=== PATIENT | male | born 1955 | race Caucasian/White ===

== ENCOUNTER 2017-04-26 08:30 | Emergency (ER) | payer MEDICARE ==
[~2017-04-26] VITALS: Ht 177.8 cm; Wt 95.3 kg
[~2017-04-26 08:30] MED LIST: ALPRAZOLAM2 MG PO; AMLODIPINE5 M1 PO; BACTRIM DS 8001 TA1 PO; BACTRIM DS 8001 TAB PO; CIPROFLOXACIN500 MG OR; CYMBALTA60 MG PO; DIAZEPAM10 MG PO; FLAGYL500 MG PO; GABAPENTIN300 M1 PO; GABAPENTIN300 MG PO; LEVOTHYROXIN0.075 M1 PO; LEVOTHYROXINE PO; LEVOTHYROXINE0.05 MG PO; LISINOPRIL 20MG20 MG PO; LISINOPRIL/HCTZ1 TA3 FT; LISINOPRIL10 MG PO; LORTAB 5/500 501 TAB PO; LORTAB 500 MG-71 TAB PO; MEDROL 4MG. DOSE4 MG PO; MORPHINE SULFAT30 M3 PO; MORPHINE SULFAT60 MG PO; NOMEDS *; OXYCODONE HCL30 MG PO; OXYCODONE HYDRO30 MG PO; OXYCONTIN 10MG10 MG PO; PHENERGAN 25MG.25 M1 PO; PROMETHAZINE HC25 M1 PO; SYNTHROID 0.00.05 MG PO; ULTRAM 50 MG TA50 MG PO; VICODIN 5/500 T1 TAB PO; ZITHROMAX Z PA250 MG PO
--- NOTE | 2017-04-26 08:50 | Emergency Room Report ---
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 N Clinical Suspician of Infection? N Mental Status: 1 - Regular (Normal Baseline) Sepsis Risk:Low Sepsis Risk Have you (or family members/close friends) recently traveled outside the [facility]? N If Yes, where/when: Have you had exposure to infectious disease within the past month? N TB? Other? Specify: Patient states yesterday he was feeling his normal self with no complaints. His friend in the room states that his face was a little bit red yesterday, had no swelling. Patient's chief complaint this morning is facial swelling and denies itching he denies any tongue swelling, did have lip swelling. Denies any trouble swallowing or shortness of breath. Denies any pain. Denies any nausea vomiting diarrhea fever chills or cough. His friend relates that he ate some bad chili 2 days ago had some nausea and vomiting after that, as well as some heartburn and took Pepto-Bismol and no symptoms on away. He has not had any further heartburn or nausea or vomiting since days ago. He has a history of kidney problems and he states yesterday he took a new kidney medicine for the first time he does not know the name of it. Denies any itching denies any rash or swelling elsewhere on his body. his friend states he slept outside last night in a chair, which is unusual for him, but otherwise was his normal self yesterday. today the patient complains of feeling tired. His friend states he is concerned that sometimes he takes too many medicines/takes them improperly, as well as was just recently started on a new medicine yesterday, of unknown type. ALLERGIES Coded Allergies: Penicillins (05/17/16) Home Medications Reported Medications Alprazolam 2 MG PO TID OXYCODONE HCL (Oxycodone Hcl) 30 MG PO Q6HP PRN PAIN #120 TAB Gabapentin 300 MG PO BID #60 MORPHINE SULFATE SR/ER (Morphine Sulfate ER) 30 MG PO Q12 Levothyroxine Sodium (Synthroid 0.05MG) 0.05 MG PO DAILY History Medical History General CAD? No Angina: No [place]: No Hypertension? Yes Hyperlipidemia? No CHF? No DVT? No PE? No COPD? No Asthma? No Anemia? No GERD? No Gastric ulcers? No GI Bleed? No Hernia? No Thyroid Problems? Yes Hypothyroidism? Yes CVA? No Seizures? Yes Diabetes? No Renal Insuffiency? Yes End Stage Renal Disease? No UTI? Yes Stones? Yes BPH? No GB Disease: No Nephritic Syndrome? No Asplenia? No Hepatitis? No Sickle Cell Disease? No Arthritis? Yes Migraines? No Cataracts? No Glaucoma? No MRSA? No HIV? No TB? No Anxiety? Yes Depression? No Cancer? 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 X9 RIGHT SHOULDER KIDNEY SURGERY TUMOR REMOVED FROM LUNG Family History Family Hx Diabetes No CAD No Hypertension Yes Hyperlipidemia Yes Cancer Yes TB No Social History Smoking Hx Smoker: Current Every Day Smoker Tobacco: Yes Type Cigarettes Packs/day < 1 Pack Alcohol Alcohol: No Review of Systems All Other Systems Reviewed and Negative Physical Exam Vital Signs Vital Signs Date Time Temp Pulse Resp B/P Pulse O2 O2 Flow FiO2 Ox Delivery Rate 04/26 1350 68 16 136/76 100 2 04/26 1312 80 16 136/76 98 2 04/26 1232 70 16 181/90 98 04/26 1154 75 16 180/80 98 04/26 1059 65 16 100/60 98 04/26 0939 75 16 110/65 98 04/26 0836 98.1 80 16 109/68 97 General Appearance: Nontoxic, has bilateral periorbital edema Head: Normocephalic, without obvious abnormality, atraumatic. Recent bilateral periorbital edema and some facial swelling minimal facial redness, his friend states it was more red yesterday. His lips look like they have some edema. he does has an area on his forehead with some redness left side. Eyes: conjunctiva/corneas clear ENT: Mucous membranes moist. I don't note any tongue edema or oropharyngeal edema Neck: No jugular venous distention. Cardiac: regular rate and rhythm Lungs: Clear to auscultation bilaterally Abdomen: Nontender, Nondistended, positive bowel sounds, no rebound : No CVA tenderness Extremities: Trace bilateral lower extremity edema Musculoskeletal: No chest wall tenderness Skin: No rashes or lesions to exposed skin. Neurologic: Alert. No gross focal deficits. pt tired but arouses to voice easily. A+0x3. moves all fours. cn intact to somewhat limited exam/compliance. Psychiatric: flat/drowsy affect (Ashish CEBALLOS, Moshe) General Appearance normal appearance Respiratory Status No: respiratory distress. Cardiovascular normal exam Neurologic alert Medical Decision Making LABS/Meds/Orders Pt receiving controlled substance in ED? No Comment 908 RN states new medicine was xanax, rn states pt appears sedated. friend had expressed concern with taking medicine properly. possible sedation from medicines. 912 Dr Leslie saw patient in ER, thinks patient can likely go home. 940 circa, cardiopulmonary technologist relates pt sleepy no lisinopril in med list. 1054 pt drowsy, states year is 1976, 1977, knows name, knows is in er, but very drowsy, awakes to voice, needs some phsyical stimulation to answer questions. will try narcan, get ct head. friend was concerned with patient taking too much medicine perhaps, as well as recent new xanax. pt denies pain. no focal deficits. staff state patient has done this before, with medications as the cause. 1124 patient less arousable, 0.4 narcan given, ct head pending, abg, ammonia added on, at this point, ct head reading pending, pt with possible alteration of mental status which began last night with him sleeping outside. likely medicine effect, not tpa candidate due to time as well as no focal deficits noted to somewhat limited exam. 1200 no effect with additional narcan. awaiting CT head read. VSSS. 1203 dw medical records field technician desire STAT reading of CT head. abg being obtained now. 1211 pt current EMV is 2/5/2 opens eyes to pain, localizes, grunts +gag reflex. has had 500 NS in so far, dw RN to finish off the second 500NS, to finish off a liter bolus. 1212 CXR brings up possibility of pneumonia. will cover. ct head nad. abg no c02 retention. ammonia pending. will admit, working diagnosis is drug overdose. 1240 ammonia normal, still with positive gag reflex. emv . call out to Mariama CEBALLOS 122 dw Mariama desires transfer to for nuerology eval. then repeat exam. wakes and tells me his name with sternal rub, denies pain. call out to ER 129pm ravin is on diversion, also on repeat exam, the skin of the left forehead looks more consistent with a pressure type wound. 159pm aaliyah Cunningham MD he accepts in transfer. transfer aaliyah RN at present. Results/Orders Laboratory Tests 04/26/17 1215: ABG pH 7.38, ABG pCO2 (Temp Corrct 40.4, ABG pO2 (Temp Correct 72.8 L, ABG HCO3 23.5, ABG Total CO2 24.8, ABG O2 Sat (Calculated) 95.0, ABG Base Excess -1.6, Dario Test ACCEPTABLE, Blood Gas Comments L RADIAL 04/26/17 1202: Urine Color YELLOW, Urine Appearance Clear, Urine pH 6.0, Ur Specific [place] 1.020, Urine Protein NEGATIVE, Urine Ketones NEGATIVE, Urine Blood NEGATIVE, Urine Nitrate NEGATIVE, Urine Bilirubin NEGATIVE, Urine Urobilinogen 0.2, Ur Leukocyte Esterase NEGATIVE, Urine RBC NONE, Urine WBC 3-5, Ur Squamous Epith Cells NONE, Urine Bacteria 3+, Urine Glucose NEGATIVE 04/26/17 1155: Ammonia 15 L 04/26/17 0900: CK and CKMB Interp 4.7 H 04/26/17 0900: Sodium 136, Potassium 5.0, Chloride 101, Carbon Dioxide 29, BUN 28 H, Creatinine 2.2 H, Estimated Creat Clear 48 L, Estimated GFR (MDRD) 31, Glucose 131 H, Calcium 9.5, Total Bilirubin 0.4, AST 17, ALT 22, Alkaline Phosphatase 72, Troponin I < 0.02, Total Protein 7.3, Albumin 3.9, Globulin 3.4 H, Albumin/ Globulin Ratio 1.1, WBC 4.8, RBC 4.30 L, Hgb 13.5 L, Hct 42.3, MCV 98.2 H, RDW 13.1, Plt Count 183, Gran % 74.9, Gran # 3.6, Lymphocytes % 17.2, Monocytes % 5.7, Eosinophils % 1.7, Basophils % 0.5, Lymphocytes # 0.8, Monocytes # 0.3, Eosinophils # 0.1, Basophils # 0.0, PUBS MCHC 32.0, MCH 31.4 H, Salicylates 5.4 , Acetaminophen 0 L, Alcohols 0 Current Medication Orders Sig/Vinh Start time Last Medication Dose Route Stop Time Status Admin Clindamycin Phosphate 600 MG ONCE ONE 04/26 1330 AC Sodium Chloride 100 ML IV 04/26 1431 Levofloxacin/Dextrose 150 ML ONCE ONE 04/26 1230 r 04/26 IV 04/26 1359 1230 Levofloxacin/Dextrose 150 ML .STK-MED ONE 04/26 1228 DC IV Sodium Chloride 1,000 ML .Q1H1M 04/26 1215 DC 04/26 IV 04/26 1315 1216 Sodium Chloride 10 ML PRN PRN 04/26 1215 AC IV 04/27 1212 Naloxone HCl 2 MG ONCE ONE 04/26 1130 DC 04/26 IV 04/26 1131 1153 Naloxone HCl 0 .STK-MED ONE 04/26 1113 DC .ROUTE Naloxone HCl 0.4 MG ONCE ONE 04/26 1100 DC 04/26 IV 04/26 1101 1114 Famotidine 0 .STK-MED ONE 04/26 921 DC IV Acetaminophen 0 .STK-MED ONE 04/26 920 DC PO Diphenhydramine HCl 0 .STK-MED ONE 04/26 920 DC .ROUTE Methylprednisolone 0 .STK-MED ONE 04/26 920 DC Sodium Succinate .ROUTE Diphenhydramine HCl 12.5 MG ONCE ONE 04/26 915 DC 04/26 IV 04/26 916 0937 Famotidine 20 MG ONCE ONE 04/26 915 DC 04/26 IV 04/26 916 0937 Sodium Chloride 8 ML ONCE ONE 04/26 915 DC 04/26 IV 04/26 916 1114 Acetaminophen 500 MG ONCE ONE 04/26 900 DC 04/26 PO 04/2637 Diphenhydramine HCl 25 MG ONCE ONE 04/26 900 CAN IV 04/26 901 Famotidine 20 MG 04/26 900 CAN IV Methylprednisolone 125 MG ONCE ONE 04/26 900 DC 04/26 Sodium Succinate IV 04/26 901 0936 Sodium Chloride 10 ML PRN PRN 10/04 0900 AC IV 04/27 0851 Orders Procedure Date/time Status DIET-NOTHING BY MOUTH 04/26 L Active DRUG ABUSE SCREEN (TRIAGE) 04/26 1234 Active SALICYLATE 04/26 1232 Complete ALCOHOL 04/26 1232 Complete Acetaminophen 04/26 1232 Complete CULTURE, BLOOD 04/26 1217 Active URINARY CATHETER INSERT 04/26 1204 Active CULTURE, URINE 04/26 1202 Active FSBS REQUEST BY CARE AREA 04/26 1126 Active ARTERIAL BLOOD GAS REQUEST 04/26 1124 Active AMMONIA 04/[address] HEAD REQ 04/26 1053 Complete SENIOR HOUSEKEEPER 04/26 0957 Active URINALYSIS/COMPLETE 04/26 0937 Complete CKMB 04/26 0904 Complete ELECTROCARDIOGRAM REQUEST 04/26 0853 Active NECK SOFT TISSUE 04/26 0853 Active IV SALINE LOCK 04/26 0853 Active GEN NSG/PT REQ (NOT FOR MEDS!) 04/26 0853 Active TROPONIN I 04/26 0853 Complete CBC WITH AUTO DIFF 04/26 0853 Complete CHEM 12 PROFILE 04/26 0853 Complete 12 LEAD EKG-BESSON (INITIAL) 04/26 UNK Active CM/EKG CM/ribbon tier Rhythm Normal Sinus Rhythm Rate 81 Ectopy No Comments LEFT axis deviation unremarkable electrocardiogram Departure Departure Time of Disposition 1223 Disposition Still a Patient Clinical Impression Primary Impression: Altered mental status Qualifiers: Altered mental status type: unspecified Qualified Code: R41.82 - Altered mental status, unspecified Secondary Impressions: Facial swelling Condition STABLE Referrals Mariama CEBALLOS,Roger Altman (PCP/Family) ED Critical Care Critical Care Yes Time spent 30-74 min Vital system(s) involved: Central Nervous System I was present at bedside for Coordinating pt's care, Interpreting EKGs/Strips , During my initial exam, Reviewing lab results, Reviewing old records, Discussing pt condition, For re-examinations, Examining radiographs If Critical Care minutes are documented, the time involved in the performance of seperately reportable procedures was not counted toward critical care time documented. I directly delivered medical care to this critically ill and/or injured patient. Timely evaluation and treatment was necessary to address the significant organ system(s) dysfunction present in this patient. at 1400
[2017-04-26 09:16] LABS: LYMPH # 0.8 K/mm3 (0.7-4.5); LYMPH % 17.2 % (10-50)
[2017-04-26 09:21] LABS: HEMOGLOBIN 13.5 g/dL (14.1-18.0)
[2017-04-26 09:26] LABS: BUN 28 mg/dL (7-18)
[2017-04-26 09:28] LABS: GFR (ESTIMATED) 31 ML/MIN (>60)
--- NOTE | 2017-04-26 11:37 | RADIOLOGY REPORT PS360 ---
CHEST(2 VIEWS-NOT PORTABLE) COMPARISON: PA and lateral chest 07/06/2012 HISTORY: Facial swelling TECHNIQUE: PA and lateral chest FINDINGS: The lung calabrese are well expanded. There are slightly accentuated bronchovascular markings in the right infrahilar region extending to the right lower lobe. The right upper lung field and left lung field are clear. Cardiac size is normal. Is no pleural fluid. The bony thorax appears normal for age with minor degenerative change lower thoracic spine. IMPRESSION: Questionable right lower lobe bronchopneumonia versus confluence of vascular shadows and suggest clinical correlation.
--- NOTE | 2017-04-26 12:12 | RADIOLOGY REPORT PS360 ---
CT HEAD WITHOUT CONTRAST CT BONE WINDOWS included ORDERING PHYSICIAN : Moshe Hinojosa MD PATIENT AGE: 62 years GENDER: Male PROCEDURE: Routine axial images headwithout contrast. Brain & bone windows HISTORY: AMS mental status changes. Not speaking. Patient uncooperative COMPARISON: CT head without contrast 12/24/2016. 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 This is seen best on axial slice 13 and 12.-No significant change here since December, No intracranial findings. No hemorrhage. No mass effect or mass lesion. No subdural nor extra-axial collection. Ventricles & basal cisterns appear satisfactory. The posterior fossa appear satisfactory and unremarkable. The skull is intact. Over 2 cm Mucous Retention cyst at floor right maxillary sinuses is slight smaller than was in 2013. Ethmoid sinuses, sphenoid and frontal sinuses clear.Mastoid air cells, middle ear & IACs are unremarkable. IMPRESSION: No acute intracranial findings. 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 No change here since December 2012
[2017-04-26 12:14] LABS: URINE BILIRUBIN - DIPSTICK NEGATIVE (NEG); URINE BLOOD NEGATIVE (NEG)
[2017-04-26 12:15] LABS: ARTERIAL ABE -1.6 MMOL/L (-2.4-+2.3); ARTERIAL PO2 72.8 MMHG (80-100); ARTERIAL TCO2 24.8 MMOL/L (23-27); OXYGEN ROOM AIR
[2017-04-26 12:16] LABS: ALLEN'S TEST ACCEPTABLE
--- NOTE | 2017-04-26 14:44 | RADIOLOGY REPORT PS360 ---
NECK SOFT TISSUE COMPARISON: None HISTORY: Facial swelling TECHNIQUE: Lateral soft tissue views of the neck FINDINGS: C1-C6 are visualized and appear in normal alignment with normal disc spaces. There appears be diffuse thickening of the epiglottis with borderline thickening of the prevertebral soft tissues. IMPRESSION: Mild diffuse thickening of the epiglottis, is there clinical suspicion of epiglottitis? Suggest consideration of a follow-up CT scan the neck for better evaluation.
[2017-04-26 15:25] LABS: AMPHETAMINES/METAMPHETAMINES NEGATIVE ng/mL (<1000)
[2017-04-26 15:37] VITALS: BP 153/78
--- OUTSIDE RECORDS SUMMARY | 2017-05-04 13:32 | External Medical Summary Rpt | CCD ---
Author Author , YASIR COOLEY Address Unknown Phone Care Team Providers Care Summer Analyst Name Role Phone Samina NGUYEN, Unavailable Unavailable Samina NGUYEN ANDREINA CAREN, Unavailable Unavailable ANDREINA CAREN ANDREINA CAREN, Unavailable Unavailable ANDREINA CAREN CONY GRACIELA, CONY Unavailable Unavailable GRACIELA CONY GRACIELA, CONY Unavailable Unavailable [facility] Un[facility] Un[facility], [facility], [facility] Purpose Continuity of Care Document - 09-20-2012 through 2016 Problems Code Diagnosis DOS Provider Status 3766 RETAINED FB 11-13-2013 [facility] PENETRATING INC WOUND ORBIT 7231 CERVICALGIA 11-13-2013 [facility] V1083 PERSONAL 11-13-2013 [facility] HISTORY CAREN OTHER MALIGNANT NEOPLASM SKIN V711 OBSERVATION 11-13-2013 ANDREINA FOR CAREN SUSPECTED MALIGNANT NEOPLASM V8289 SPECIAL 11-13-2013 ANDREINA SCREENING CAREN FOR OTHER SPECIFIED CONDITIONS 3543 LESION OF 10-28-2013 [facility]IAL [facility] NERVE INC 4019 UNSPECIFIED 10-28-2013 [facility]ENTIAL [facility] HYPERTENSIO INC N 4619 ACUTE 10-28-2013 [facility]IS[facility] UNSPECIFIED INC 72693 DIVERTICULI 10-28-2013 [facility] TIS OF [facility] COLON INC 77701 OTHER 10-28-2013 [facility] 7820 DISTURBANCE 10-28-2013 CONY GRACIELA OF SKIN SENSATION [phone] 09-20-2012 [place] OPIOID [facility] C [phone] 09-20-2012 [place] OTHER [facility] [phone] 09-20-2012 [place] CHEST PAIN [facility] 244.9 Hypothyroid [facility] 401.1 Benign [facility] n [id number] Active [facility] [id number] Chronic [facility] Allergies, Adverse Reactions, Alerts Type Drug Allergy Adverse Reaction to Substance Substance Reaction Severity Penicillin I-RASH Unknown Penicillin G Unknown Unknown Medications Na ND Rx Da Fi Fi Am Da Di Ph RX Ph St me C No te ll ll ou ys ag ar # ys at rm s nt no ma ic us Or Da si cy ia de te s n re d NI 00 06 0 No CO 06 -2 TI 75 6- Lo NE 12 20 ng 61 13 er 21 4 Ac MG ti /2 ve 4H R PA TC H SY 00 06 0 No NT 07 -2 HR 44 6- Lo OI 34 20 ng D 19 13 er 25 0 Ac MC ti G ve TA BL ET SO 00 06 0 No DI 40 -2 UM 97 6- Lo 98 20 ng CH 30 13 er LO 9 RI Ac DE ti ve 0. 9% SO GILBERTO TI ON Sa 63 06 1 No li 80 -2 ne 70 5- Lo 10 20 ng Fl 07 13 er us 5 h Ac 10 ti ML ve Sy ri ng e AC 00 06 0 No TI 57 -2 DO 40 5- Lo SE 12 20 ng 07 13 er 50 6 Ac GM ti ve LI QU ID Na 76 06 0 No lo 32 -2 xo 91 5- Lo ne 46 20 ng 90 13 er 2M 5 G/ Ac 2M ti L ve Sy ri ng e Sa 63 06 1 No li 80 -2 ne 70 5- Lo 10 20 ng Fl 07 13 er us 5 h Ac 10 ti ML ve Sy ri ng e Na 76 06 0 No lo 32 -2 xo 91 5- Lo ne 46 20 ng 90 13 er 2M 5 G/ Ac 2M ti L ve Sy ri ng e Sa 63 06 1 No li 80 -2 ne 70 5- Lo 10 20 ng Fl 07 13 er us 5 h Ac 10 ti ML ve Sy ri ng e Na 76 06 0 No lo 32 -2 xo 91 5- Lo ne 46 20 ng 90 13 er 2M 5 G/ Ac 2M ti L ve Sy ri ng e Sa 63 06 1 No li 80 -2 ne 70 5- Lo 10 20 ng Fl 07 13 er us 5 h Ac 10 ti ML ve Sy ri ng e Na 76 06 0 No lo 32 -2 xo 91 5- Lo ne 46 20 ng 90 13 er 2M 5 G/ Ac 2M ti L ve Sy ri ng e As 51 02 0 No pi 07 -2 ri 90 8- Lo n 00 20 ng 32 52 13 er 5M 0 G Ac Ta ti bl ve et NI 59 02 0 No TR 63 -2 OG 00 8- Lo LY 30 20 ng CE 06 13 er RI 5 N Ac 0. ti 4M ve G/ DO SE SP RA Y Vital Signs 05-09-2013 02:12 Name Value Interpretat Reference Comment ion Range BP 70 mm[Hg] Diastolic BP Systolic 120 mm[Hg] Heart 78 /min Rate/Pulse O2% 97 % Respiratory 16 /min Rate 04-08-2013 19:03 Name Value Interpretat Reference Comment ion Range Body 97.9 [degF] Temperature BP 75 mm[Hg] Diastolic BP Systolic 122 mm[Hg] Heart 80 /min Rate/Pulse O2% 98 % Respiratory 18 /min Rate 04-08-2013 19:02 Name Value Interpretat Reference Comment ion Range Body 97.9 [degF] Temperature BP 75 mm[Hg] Diastolic BP Systolic 122 mm[Hg] Heart 80 /min Rate/Pulse O2% 98 % Respiratory 18 /min Rate 02-15-2013 23:20 Name Value Interpretat Reference Comment ion Range BP 81 mm[Hg] Diastolic BP Systolic 131 mm[Hg] Heart 65 /min Rate/Pulse O2% 99 % Respiratory 20 /min Rate 01-16-2013 13:55 Name Value Interpretat Reference Comment ion Range Body 98.0 [degF] Temperature BP 80 mm[Hg] Diastolic BP Systolic 112 mm[Hg] Heart 65 /min Rate/Pulse Respiratory 18 /min Rate 01-16-2013 12:00 Name Value Interpretat Reference Comment ion Range O2% 100 % 01-16-2013 00:30 Name Value Interpretat Reference Comment ion Range Height 177.80 cm Weight 85.333 kg Measured 01-15-2013 22:14 Name Value Interpretat Reference Comment ion Range Body 98.0 [degF] Temperature BP 57 mm[Hg] Diastolic BP Systolic 151 mm[Hg] Heart 60 /min Rate/Pulse O2% 96 % Respiratory 16 /min Rate Weight 0 [oz_av] Measured 09-20-2012 19:01 Name Value Interpretat Reference Comment ion Range BP 63 mm[Hg] Diastolic BP Systolic 128 mm[Hg] Heart 57 /min Rate/Pulse O2% 96 % Respiratory 20 /min Rate 09-20-2012 14:59 Name Value Interpretat Reference Comment ion Range Body 98.7 [degF] Temperature BP 78 mm[Hg] Diastolic BP Systolic 161 mm[Hg] Heart 78 /min Rate/Pulse O2% 98 % Respiratory 20 /min Rate Weight 0 [oz_av] Measured Weight 89.812 kg Measured Results Labs Lab Lab Date Result Refere Interp Status Commen Order Detail nces retati t Range on Gas panel in Arterial blood (04-26-2017 12:15) Arteria ACCEPTA complet l 017 BLE ed patency 12:15 Wrist artery --pre arteria l punctur e SOURCE L complet 017 RADIAL ed 12:15 Drugs identified in Urine by Screen method (04-26-2017 12:02) Ampheta NEGATIV <1000 complet mine 017 E ed [Presen 12:02 ce] in Urine by Screen method 11-Hydr POSITIV <50 Abnorma complet oxy 017 E l ed delta-9 12:02 tetrahy drocann abinol [Presen ce] in Unspeci fied specime n Urinalysis dipstick W Reflex Microscopic panel in Urine (04-26-2017 12:02) Bacteri 3+ O complet a 017 ed [Presen 12:02 ce] in Urine sedimen t by Light microsc opy Erythro NONE 0 complet cytes 017 ed [Presen 12:02 ce] in Urine sedimen t by Light microsc opy Epithel NONE OCC complet ial 017 ed cells.s 12:02 quamous [Presen ce] in Urine sedimen t by Microsc opy high power field Leukocy 3-5 O complet rigo 017 wbc/hpf ed [#/volu 12:02 me] in Urine Urinalysis dipstick W Reflex Microscopic panel in Urine (04-26-2017 12:02) Appeara Clear CLEAR complet nce of 017 ed Urine 12:02 Bilirub NEGATIV NEG complet in 017 E ed [Presen 12:02 ce] in Urine by Test strip Erythro NEGATIV NEG complet cytes 017 E ed [Presen 12:02 ce] in Urine Color YELLOW YELLOW complet of 017 ed Urine 12:02 Ketones NEGATIV NEG complet 017 E ed [Presen 12:02 ce] in Urine by Automat ed test strip Mucus NEGATIV NEG complet [Presen 017 E ed ce] in 12:02 Urine sedimen t by Light microsc opy Nitrite NEGATIV NEG complet 017 E ed [Presen 12:02 ce] in Urine by Test strip Urobili 0.2 NEG complet nogen 017 ed [Presen 12:02 ce] in Urine by Test strip Ca-I SerPl ISE-sCnc (01-24-2017 06:14) Ca-I 5.0 4.6-5.1 complet SerPl 017 mg/dL ed ISE-sCn 06:14 c Magnesium SerPl-mCnc (01-24-2017 06:14) Magnesi 2.1 1.9-2.4 complet um 017 mg/dL ed SerPl-m 06:14 Cnc Ca-I SerPl ISE-sCnc (01-23-2017 02:29) Ca-I 4.5 4.6-5.1 complet SerPl 017 mg/dL ed ISE-sCn 02:29 c Magnesium SerPl-mCnc (01-23-2017 02:29) Magnesi 2.0 1.9-2.4 complet um 017 mg/dL ed SerPl-m 02:29 Cnc Phosphate SerPl-mCnc (01-22-2017 02:27) Phospha 3.7 2.5-4.5 complet te 017 mg/dL ed SerPl-m 02:27 Cnc Magnesium SerPl-mCnc (01-22-2017 02:27) Magnesi 2.1 1.9-2.4 complet um 017 mg/dL ed SerPl-m 02:27 Cnc Ca-I SerPl ISE-sCnc (01-22-2017 02:27) Ca-I 4.4 4.6-5.1 complet SerPl 017 mg/dL ed ISE-sCn 02:27 c MDRO Wnd (01-21-2017 16:12) Bacteri [id number] complet a XXX 017 06 No ed Anaerob 16:12 growth e+Aerob (qualif e Cult ier value) SCT NG1 NO GROWTH DAY 1. L CC XXX NOTAP complet VC-aCnc 017 NOT ed 16:12 APPLICA BLE L Magnesium SerPl-mCnc (01-21-2017 12:30) Magnesi 2.2 1.9-2.4 complet um 017 mg/dL ed SerPl-m 12:30 Cnc Sodium Ur-sCnc (01-21-2017 12:30) Sodium 88 complet Ur-sCnc 017 mmol/L ed 12:30 Creat Ur-mCnc (01-21-2017 12:30) Creat 22 complet Ur-mCnc 017 mg/dL ed 12:30 Ca-I SerPl ISE-sCnc (01-21-2017 12:30) Ca-I 4.1 4.6-5.1 complet SerPl 017 mg/dL ed ISE-sCn 12:30 c NT-proBNP SerPl-mCnc (01-21-2017 12:30) NT-proB 143 0-899 complet HOSE TENDER 017 pg/mL ed SerPl-m 12:30 Cnc T4 Free SerPl-mCnc (01-21-2017 12:30) T4 Free 1.2 0.8-1.7 complet 017 ng/dL ed SerPl-m 12:30 Cnc Salicylates SerPl-sCnc (01-21-2017 12:30) Salicyl < 0.3 0-25.0 complet ates 017 mg/dL ed SerPl-s 12:30 Cnc Acetamin SerPl-mCnc (01-21-2017 12:30) Acetami < 15.0 10-30 complet n 017 ug/mL ed SerPl-m 12:30 Cnc CK SerPl-cCnc (01-21-2017 12:30) CK 543 U/L 49-320 complet SerPl-c 017 ed Cnc 12:30 Bacteria XXX Anaerobe+Aerobe Cult (01-21-2017 11:16) Bacteri [id number] complet a XXX 017 06 No ed Anaerob 11:16 growth e+Aerob (qualif e Cult ier value) SCT NGB6 NO GROWTH DAY 5. L TSH SerPl DL<=0.005 mIU/L-aCnc (01-21-2017 08:43) TSH 6.98 0.4-4.2 complet SerPl 017 uIU/mL ed DL<=0.0 08:43 05 mIU/L-a Cnc Phosphate SerPl-mCnc (01-21-2017 08:43) Phospha 8.4 2.5-4.5 complet te 017 mg/dL ed SerPl-m 08:43 Cnc Magnesium SerPl-mCnc (01-21-2017 08:43) Magnesi 2.5 1.9-2.4 complet um 017 mg/dL ed SerPl-m 08:43 Cnc Lipase SerPl-cCnc (01-21-2017 08:43) Lipase 40 U/L 19-63 complet SerPl-c 017 ed Cnc 08:43 Lactate Bld-sCnc (01-21-2017 08:43) Lactate 1.6 complet 017 mmol/L ed Bld-sCn 08:43 c Drugs identified in Urine by Screen method (12-28-2016 16:00) Ampheta NEGATIV <1000 complet mine 017 E ed [Presen 16:00 ce] in Urine by Screen method 11-Hydr POSITIV <50 Abnorma complet oxy 017 E l ed delta-9 16:00 tetrahy drocann abinol [Presen ce] in Unspeci fied specime n Urinalysis dipstick W Reflex Microscopic panel in Urine (12-25-2016 13:10) Appeara CLEAR CLEAR complet nce of 017 ed Urine 13:10 Bacteri TRACE O complet a 017 ed [Presen 13:10 ce] in Urine sedimen t by Light microsc opy Bilirub NEGATIV NEG complet in 017 E ed [Presen 13:10 ce] in Urine by Test strip Erythro NEGATIV NEG complet cytes 017 E ed [Presen 13:10 ce] in Urine Color 06-04-2 YELLOW YELLOW complet of 017 ed Urine 13:10 Ketones 12-25-2 NEGATIV NEG complet 017 E ed [Presen 13:10 ce] in Urine by Automat ed test strip Mucus 12-25-2 NEGATIV NEG complet [Presen 017 E ed ce] in 13:10 Urine sedimen t by Light microsc opy Mucus -04-2 OCC NONE complet [Presen 017 ed ce] in 13:10 Urine sedimen t by Light microsc opy Nitrite --2 NEGATIV NEG complet 017 E ed [Presen 13:10 ce] in Urine by Test strip Epithel -04-2 OCC OCC complet ial 017 ed cells.s 13:10 quamous [Presen ce] in Urine sedimen t by Microsc opy high power field Urobili 12-25-2 0.2 NEG complet nogen 017 ed [Presen 13:10 ce] in Urine by Test strip Drugs identified in Urine by Screen method (12-25-2016 13:10) Ampheta 12-25-2 NEGATIV <1000 complet mine 017 E ed [Presen 13:10 ce] in Urine by Screen method 11-Hydr 12-25-2 NEGATIV <50 complet oxy 017 E ed delta-9 13:10 tetrahy drocann abinol [Presen ce] in Unspeci fied specime n COMPREHENSIVE METABOLIC PANEL (01-16-2013 09:05) Glucose 105 74-106 complet 013 mg/dL ed Bld-mCn 09:05 c BUN 22 7-18 complet Bld-mCn 013 mg/dL ed c 09:05 Creat 1.0 0.8-1.3 complet SerPl-m 013 mg/dL ed Cnc 09:05 ESTIMAT 101 50-200 complet ED 013 ML/MIN ed CREATIN 09:05 INE CLEARAN CE GFR 78 Greater complet (ESTIMA 013 ML/MIN than ed MARCELLUS) 09:05 60 Sodium 144 136-145 complet SerPl-s 013 mmoL/L ed Cnc 09:05 Potassi 4.6 3.5-5.1 complet um 013 mmoL/L ed SerPl-s 09:05 Cnc Chlorid 06-26-2 107 98-107 complet e 013 mmoL/L ed SerPl-s 09:05 Cnc CO2 01-16-2 36 21.0-32 complet SerPl-s 013 mmoL/L .0 ed Cnc 09:05 Calcium 01-16-2 8.7 8.5-10. complet 013 mg/dL 1 ed SerPl-m 09:05 Cnc Prot 26-2 6.9 6.4-8.2 complet SerPl-m 013 gm/dL ed Cnc 09:05 Albumin 01-16-2 3.7 3.4-5.0 complet 013 gm/dL ed SerPl-m 09:05 Cnc Globuli 01-16-2 3.2 1.3-3.2 complet n 013 gm/dL ed Ser-mCn 09:05 c Albumin 01-16-2 1.2 UNK 1.1-1.8 complet /Glob 013 ed SerPl-m 09:05 Rto Bilirub 01-16-2 0.6 0.2-1.0 complet 013 mg/dL ed SerPl-m 09:05 Cnc AST 26-2 8 U/L 15-37 complet SerPl-c 013 ed Cnc 09:05 ALT -26-2 29 U/L 30-65 complet SerPl-c 013 ed Cnc 09:05 ALP 26-2 90 U/L 50-136 complet SerPl-c 013 ed Cnc 09:05 URINALYSIS/COMPLETE (01-15-2013 23:04) URINE 06-25-2 YELLOW YELLOW complet COLOR 013 ed 23:04 URINE -25-2 CLEAR CLEAR complet APPEARA 013 ed NCE 23:04 URINE 06-25-2 NEGATIV NEG complet GLUCOSE 013 E ed - 23:04 DIPSTIC K URINE 06-25-2 NEGATIV NEG complet BILIRUB 013 E ed IN - 23:04 DIPSTIC K URINE 06-25-2 NEGATIV NEG complet KETONE 013 E mg/dL ed 23:04 URINE 06-25-2 1.020 1.005-1 complet SPECIFI 013 UNK .030 ed C 23:04 GRAVITY URINE 06-25-2 NEGATIV NEG complet BLOOD 013 E ed 23:04 URINE 06-25-2 5.5 UNK 5.0-8.5 complet PH 013 ed 23:04 URINE 06-25-2 NEGATIV NEG complet PROTEIN 013 E mg/dL ed - 23:04 DIPSTIC K URINE 0.2 NEG complet UROBILI 013 E.U./dL ed NOGEN - 23:04 DIPSTIC K URINE NEGATIV NEG complet NITRATE 013 E ed - 23:04 DIPSTIC K URINE NEGATIV NEG complet LEUK 013 E ed ESTERAS 23:04 E URINE OCC O complet WBC 013 wbc/hpf ed 23:04 COMPREHENSIVE METABOLIC PANEL (01-15-2013 22:05) Glucose 106 74-106 complet 013 mg/dL ed Bld-mCn 22:05 c BUN 33 7-18 complet Bld-mCn 013 mg/dL ed c 22:05 Creat 1.3 0.8-1.3 complet SerPl-m 013 mg/dL ed Cnc 22:05 GFR 57 Greater complet (ESTIMA 013 ML/MIN than ed MARCELLUS) 22:05 60 Sodium 142 136-145 complet SerPl-s 013 mmoL/L ed Cnc 22:05 Potassi 4.5 3.5-5.1 complet um 013 mmoL/L ed SerPl-s 22:05 Cnc Chlorid 104 98-107 complet e 013 mmoL/L ed SerPl-s 22:05 Cnc CO2 34 21.0-32 complet SerPl-s 013 mmoL/L .0 ed Cnc 22:05 Calcium 9.2 8.5-10. complet 013 mg/dL 1 ed SerPl-m 22:05 Cnc Prot 7.7 6.4-8.2 complet SerPl-m 013 gm/dL ed Cnc 22:05 Albumin 4.2 3.4-5.0 complet 013 gm/dL ed SerPl-m 22:05 Cnc Globuli 3.5 1.3-3.2 complet n 013 gm/dL ed Ser-mCn 22:05 c Albumin 1.2 UNK 1.1-1.8 complet /Glob 013 ed SerPl-m 22:05 Rto Bilirub 06-25-2 0.5 0.2-1.0 complet 013 mg/dL ed SerPl-m 22:05 Cnc AST 01-15-2 10 U/L 15-37 complet SerPl-c 013 ed Cnc 22:05 ALT 01-15-2 26 U/L 30-65 complet SerPl-c 013 ed Cnc 22:05 ALP 01-15-2 88 U/L 50-136 complet SerPl-c 013 ed Cnc 22:05 Acetamin SerPl-mCnc (01-15-2013 22:05) Acetami 01-15-2 0 ug/mL 10-30 complet n 013 ed SerPl-m 22:05 Cnc Ethanol Bld-mCnc (01-15-2013 22:05) Ethanol 01-15-2 0 mg/dL 0-99 complet 013 ed Bld-mCn 22:05 c Salicylates SerPl-mCnc (01-15-2013 22:05) Salicyl 01-15-2 3.5 2.8-20. complet ates 013 mg/dL 0 ed SerPl-m 22:05 Cnc CBC with AUTO DIFF (01-15-2013 22:05) WBC # 25-2 3.4 4.8-10. complet Bld 013 K/MM3 8 ed Auto 22:05 RBC # 25-2 4.31 4.6-6.2 complet Bld 013 M/mm3 ed Auto 22:05 Hgb 01-15-2 13.6 14.1-18 complet Bld-mCn 013 g/dL .0 ed c 22:05 Hct Fr 01-15-2 40.6 % 42.0-52 complet Bld 013 .0 ed 22:05 MCV RBC 01-15-2 94.3 fl 82.2-97 complet 013 .8 ed 22:05 MCH RBC 01-15-2 31.6 pg 27-31.2 complet Qn 013 ed Auto 22:05 MEAN 01-15-2 33.5 31.8-35 complet CORPUSC 013 g/dl .4 ed ULAR 22:05 HGB CONC RDW RBC 01-15-2 13.6 % 11.5-17 complet Auto 013 .5 ed 22:05 Platele 01-15-2 172 142-424 complet t Bld 013 K/mm3 ed Ql 22:05 Manual MEAN 06-25-2 7.5 fl 7.4-10. complet PLATELE 013 4 ed T 22:05 VOLUME Granulo 06-25-2 51.5 % 37.0-80 complet cytes 013 .0 ed Fr Bld 22:05 Auto LYMPH % 06-25-2 35.0 % 10-50 complet 013 ed 22:05 Monocyt 06-25-2 7.5 % 1.7-9.3 complet es Fr 013 ed Bld 22:05 Auto Eosinop 06-25-2 4.9 % 0.1-12. complet hil Fr 013 0 ed Bld 22:05 Auto Basophi 06-25-2 1.0 % 0.1-2.0 complet ls Fr 013 ed Bld 22:05 Auto Granulo 06-25-2 1.8 1.3-8.0 complet cytes # 013 K/mm3 ed Bld 22:05 Auto Lymphoc 06-25-2 1.2 0.7-4.5 complet ytes Fr 013 K/mm3 ed Bld 22:05 Auto Monocyt 06-25-2 0.3 0.1-1.0 complet es # 013 K/mm3 ed Bld 22:05 Auto Eosinop 06-25-2 0.2 0.0-0.4 complet hil # 013 K/mm3 ed Bld 22:05 Auto Basophi 06-25-2 0.0 0-0.2 complet ls # 013 K/MM3 ed Bld 22:05 Auto COMPREHENSIVE METABOLIC PANEL (09-20-2012 15:10) Glucose 157 74-106 complet 013 mg/dL ed Bld-mCn 15:10 c BUN 12 7-18 complet Bld-mCn 013 mg/dL ed c 15:10 Creat 1.3 0.8-1.3 complet SerPl-m 013 mg/dL ed Cnc 15:10 ESTIMAT 82 50-200 complet ED 013 ML/MIN ed CREATIN 15:10 INE CLEARAN CE GFR 57 Greater complet (ESTIMA 013 ML/MIN than ed MARCELLUS) 15:10 60 Sodium 139 136-145 complet SerPl-s 013 mmoL/L ed Cnc 15:10 Potassi 3.8 3.5-5.1 complet um 013 mmoL/L ed SerPl-s 15:10 Cnc Chlorid 101 98-107 complet e 013 mmoL/L ed SerPl-s 15:10 Cnc CO2 25 21.0-32 complet SerPl-s 013 mmoL/L .0 ed Cnc 15:10 Calcium 9.3 8.5-10. complet 013 mg/dL 1 ed SerPl-m 15:10 Cnc Prot 2 7.3 6.4-8.2 complet SerPl-m 013 gm/dL ed Cnc 15:10 Albumin 4.1 3.4-5.0 complet 013 gm/dL ed SerPl-m 15:10 Cnc Globuli 3.2 1.3-3.2 complet n 013 gm/dL ed Ser-mCn 15:10 c Albumin 1.3 UNK 1.1-1.8 complet /Glob 013 ed SerPl-m 15:10 Rto Bilirub 0.6 0.2-1.0 complet 013 mg/dL ed SerPl-m 15:10 Cnc AST 13 U/L 15-37 complet SerPl-c 013 ed Cnc 15:10 ALT 26 U/L 30-65 complet SerPl-c 013 ed Cnc 15:10 ALP 80 U/L 50-136 complet SerPl-c 013 ed Cnc 15:10 CK SerPl-cCnc (09-20-2012 15:10) CK 116 U/L 39-308 complet SerPl-c 013 ed Cnc 15:10 CK MB SerPl-mCnc (09-20-2012 15:10) CK MB 2 0.8 0.0-3.6 complet SerPl-m 013 ng/mL ed Cnc 15:10 TROPONIN I (09-20-2012 15:10) TROPONI 2 Less 0.00-0. complet N I 013 than 06 ed 15:10 0.02 ng/mL CBC with AUTO DIFF (09-20-2012 15:10) WBC # 09-20-2 6.7 4.8-10. complet Bld 013 K/MM3 8 ed Auto 15:10 RBC # 09-20-2 4.61 4.6-6.2 complet Bld 013 M/mm3 ed Auto 15:10 Hgb 09-20-2 14.3 14.1-18 complet Bld-mCn 013 g/dL .0 ed c 15:10 Hct Fr 44.0 % 42.0-52 complet Bld 013 .0 ed 15:10 MCV RBC 95.6 fl 82.2-97 complet 013 .8 ed 15:10 MCH RBC 2 31.1 pg 27-31.2 complet Qn 013 ed Auto 15:10 MEAN 32.5 31.8-35 complet CORPUSC 013 g/dl .4 ed ULAR 15:10 HGB CONC RDW RBC 14.0 % 11.5-17 complet Auto 013 .5 ed 15:10 Platele 179 142-424 complet t Bld 013 K/mm3 ed Ql 15:10 Manual MEAN 8.9 fl 7.4-10. complet PLATELE 013 4 ed T 15:10 VOLUME Granulo 2 74.3 % 37.0-80 complet cytes 013 .0 ed Fr Bld 15:10 Auto LYMPH % 09-20-2 19.3 % 10-50 complet 013 ed 15:10 Monocyt 09-20-2 5.3 % 1.7-9.3 complet es Fr 013 ed Bld 15:10 Auto Eosinop --2 0.7 % 0.1-12. complet hil Fr 013 0 ed Bld 15:10 Auto Basophi 09-20-2 0.4 % 0.1-2.0 complet ls Fr 013 ed Bld 15:10 Auto Granulo --2 5.0 1.3-8.0 complet cytes # 013 K/mm3 ed Bld 15:10 Auto Lymphoc 09-20-2 1.3 0.7-4.5 complet ytes Fr 013 K/mm3 ed Bld 15:10 Auto Monocyt -28-2 0.4 0.1-1.0 complet es # 013 K/mm3 ed Bld 15:10 Auto Eosinop 09-20-2 0.1 0.0-0.4 complet hil # 013 K/mm3 ed Bld 15:10 Auto Basophi 09-20-2 0.0 0-0.2 complet ls # 013 K/MM3 ed Bld 15:10 Auto Procedures Procedure DOS Code Location Performer Comment 3D 63706 [facility] W/INTERP INC INC & POSTPROCE SS SUPERVISI ON RADEX 13716 ANDREINA ANDREINA ORBITS 4 CAREN CAREN COMPLETE MINIMUM 4 VIEWS MRI 15373 ANDREINA ANDREINA SPINAL 4 CAREN CAREN CANAL CERVICAL W/O CONTRAST MATRL RADEX 99444 [facility] HUMERUS [facility] MINIM[place] [address] [place] [address] [facility] HEAD/BRAI [facility] N W/O INC INC CONTRAST MATERIAL 3D 45006 [facility] INC INC W/INTERP& POSTPROC DIFF WORK STATION BLOOD 07689 [facility] COUNT [facility] COMPLETE INC INC AUTO&AUTO DIFRNTL WBC RADIOLOGI 66665 [facility] C EXAM 4 [facility] CHEST 2 INC INC VIEWS FRONTAL&L ATERAL 3D 34159 [facility] W/INTERP INC INC & [place] [address] [facility] CERVICAL [facility] SPINE W/O INC INC CONTRAST MATERIAL COMPREHEN 26346 [facility] SIVE [facility] METABOLIC INC INC PANEL Encounters Encounter Start End Date Code Location Performer Type Date HOSPITAL [facility] - [facility] OUTPATIEN INC T EMERGENCY 97269 [facility] 4 [facility] DEPARTMEN INC T VISIT MODERATE SEVERITY [facility]OSPITAL [facility] - [facility] OUTPATIEN INC T EMERGENCY 53960 [facility] DONNELLY DEPT 4 4 GRACI[facility]A GRACIELA VISIT HIGH SEVERITY& THREAT FUNCJ Emergency CYNDEE Donnelly MD (ER) 3 01:43 3 02:14 [facility] Emergency CYNDEE BIRD (ER) 3 18:29 3 19:03 [facility] MOHAMED Emergency CYNDEE Hidalgo MD (ER) 3 22:24 3 23:22 [facility] Inpatient OSMAR Lawson (IN) 3 22:26 3 00:28 [facility] Emergency CYNDEE White (ER) 3 15:21 3 19:03 [facility]
--- OUTSIDE RECORDS SUMMARY | 2017-05-04 13:32 | External Medical Summary Rpt | CCD ---
Author Author , YASIR COOLEY Address Unknown Phone [email or web address] Care Team Providers Care Parachute Manufacturing Supervisor Name Role Phone Samina NGUYEN, Unavailable Unavailable Samina NGUYEN ANDREINA CAREN, Unavailable Unavailable ANDREINA CAREN ANDREINA CAREN, Unavailable Unavailable ANDREINA CAREN CONY GRACIELA, CONY Unavailable Unavailable GRACIELA CONY GRACIELA, CONY Unavailable Unavailable [facility], [facility] Purpose Continuity of Care Document - 09-20-2012 through 2016 Problems Code Diagnosis DOS Provider Status 3766 RETAINED FB 11-13-2013 [facility]LLOW [facility] PENETRATING INC WOUND ORBIT 7231 CERVICALGIA 11-13-2013 [facility] INC V1083 PERSONAL 11-13-2013 ANDREINA HISTORY CAREN OTHER MALIGNANT NEOPLASM SKIN V711 OBSERVATION 11-13-2013 ANDREINA FOR CARNE SUSPECTED MALIGNANT NEOPLASM V8289 SPECIAL 11-13-2013 ANDREINA SCREENING CAREN FOR OTHER SPECIFIED CONDITIONS 3543 LESION OF 10-28-2013 [facility] RADIAL [facility] NERVE INC 4019 UNSPECIFIED 10-28-2013 [facility] ESSENTIAL [facility] HYPERTENSIO INC N 4619 ACUTE 10-28-2013 [facility]USITIS[facility] UNSPECIFIED INC 71416 DIVERTICULI 10-28-2013 [facility] T[facility] OF [facility] COLON INC 07223 OTHER 10-28-2013 [facility]IONS [facility] INC 7820 DISTURBANCE 10-28-2013 CONY GRACIELA OF SKIN SENSATION 305.50 305.50 09-20-2012 [place] OPIOID [facility] C 780.39 780.39 09-20-2012 [place] OTHER [facility] CONVULSIONS Hospital [phone] 09-20-2012 [place] CHEST PAIN [facility] 244.9 Hypothyroid [facility] 401.1 Benign [facility] n [id number] Active [facility] [id number] Chronic [facility] Allergies, Adverse Reactions, Alerts Type [...] 02:27 c MDRO Wnd (01-21-2017 16:12) Bacteri [id number] complet a XXX 017 06 No ed [...] SerPl-mCnc (01-21-2017 12:30) NT-proB [phone] complet CONCRETE POURER 017 pg/mL ed SerPl-m 12:30 Cnc T4 [...] Bacteria XXX Anaerobe+Aerobe Cult (01-21-2017 11:16) Bacteri [id number] complet a XXX 017 06 No ed [...] Procedure DOS Code Location Performer Comment 3D 23379 [facility] W/INTERP INC INC & POSTPROCE SS SUPERVISI ON RADEX 86757 ANDREINA ANDREINA ORBITS 4 CAREN CAREN COMPLETE MINIMUM 4 VIEWS MRI 51869 ANDREINA ANDREINA SPINAL 4 CAREN CAREN CANAL CERVICAL W/O CONTRAST MATRL RADEX 22975 [facility] HUMERUS 4 [facility] [place] [address] [place] [address] [facility] HEAD/BRAI 4 [facility] N W/O INC INC CONTRAST MATERIAL 3D 75436 [facility] INC INC W/INTERP& POSTPROC DIFF WORK STATION BLOOD 50141 [facility] COUNT 4 [facility] COMPLETE INC INC AUTO&AUTO DIFRNTL WBC RADIOLOGI 15243 [facility] C EXAM 4 [facility] CHEST 2 INC INC VIEWS FRONTAL&L ATERAL 3D 65267 [facility] W/INTERP INC [place] [address] [facility] CERVICAL 4 [facility] SPINE W/O INC INC CONTRAST MATERIAL COMPREHEN 80395 [facility] SIVE 4 [facility] METABOLIC INC INC PANEL Encounters Encounter Start End Date Code Location Performer Type Date HOSPITAL [facility] - [facility] OUTPATIEN INC T EMERGENCY 65038 [facility] 4 4 [facility] DEPARTMEN INC T VISIT MODERATE SEVERITY [facility]OSPITAL [facility] - [facility] 4 [facility] OUTPATIEN INC T EMERGENCY 26069 [facility] DONNELLY DEPT 4 4 GRACI[facility]A GRACIELA VISIT HIGH SEVERITY& THREAT FUNCJ Emergency CYNDEE Donnelly MD (ER) 3 01:43 3 02:14 [facility] Emergency CYNDEE BIRD (ER) 3 18:29 3 19:03 [facility] MOHAMED Emergency CYNDEE Hidalgo MD (ER) 3 22:24 3 23:22 [facility] Inpatient OSMAR Lawson (IN) 3 22:26 3 00:28 [facility] Emergency CYNDEE White (ER) 3 15:21 3 19:03 [facility]
--- OUTSIDE RECORDS SUMMARY | 2017-05-04 13:33 | External Medical Summary Rpt | CCD ---
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 Name Role Phone ANDREINA CAREN, Unavailable Unavailable ANDREINA CAREN ANDREINA CAREN, Unavailable Unavailable ANDREINA CAREN CONY GRACIELA, CONY Unavailable Unavailable GRACIELA CONY GRACIELA, CONY Unavailable Unavailable [facility] Un[facility] Purpose Continuity of Care Document - 10-28-2013 through 2016 Problems Code Diagnosis DOS Provider [...] 10-28-2013 [facility] UNSPECIFIED INC 66896 DIVERTICULI 10-28-2013 [facility] COLON INC 96924 OTHER 10-28-2013 [facility]IONS [facility] INC 7820 DISTURBANCE 10-28-2013 CONY GRACIELA OF SKIN SENSATION Procedures Procedure DOS Code Location Performer Comment RADEX 63683 ANDREINA ANDREINA ORBITS 4 CAREN CAREN COMPLETE MINIMUM 4 VIEWS 3D 40929 [facility]Z RENDERING 4 [facility] W/INTERP INC INC & POSTPROCE SS SUPERVISI ON MRI 68906 ANDREINA ANDREINA SPINAL 4 CAREN CAREN CANAL CERVICAL W/O CONTRAST MATRL BLOOD 29207 [facility] ORTI[facility] COUNT 4 [facility] COMPLETE INC INC AUTO&AUTO DIFRNTL WBC 3D 19264 [facility] OR[facility] RENDERING 4 [facility] W/INTERP INC INC & [place] [address] [facility] ORTIZ HEAD/BRAI 4 [facility] N W/O INC INC CONTRAST MATERIAL 3D 20428 [facility] OR[facility] RENDERING 4 [facility] INC INC W/INTERP& POSTPROC DIFF WORK STATION COMPREHEN 49331 [facility] SIVE 4 [facility] [place] [address] [facility]TI[facility] CERVICAL 4 [facility] SPINE W/O INC INC CONTRAST MATERIAL RADIOLOGI 79182 [facility] ORTIZ C EXAM 4 [facility] CHEST 2 INC INC VIEWS FRONTAL&L ATERAL RADEX 15592 [facility] ORTIZ HUMERUS 4 [facility] MINIMUM 2 INC INC VIEWS Encounters Encounter Start End Date Code Location Performer Type Date [facility] OUTPATIEN INC T [facility] - 4 4 [facility] OUTPATIEN INC T EMERGENCY 94930 [facility] DONNELLY DEPT 4 4 GRACIELA GRACIELA VISIT HIGH SEVERITY& THREAT FUN EMERGENCY 94859 [facility] 4 4 [facility] DEPARTMEN INC T VISIT MODERATE SEVERITY
--- OUTSIDE RECORDS SUMMARY | 2017-05-04 13:33 | External Medical Summary Rpt | CCD ---
Demographics Preferred Language Stateless Marital Status Unknown Sabianist Affiliation Unknown Race Unknown Ethnic Group Unknown Author Author , YASIR COOLEY Address Unknown Phone Immunization No patient found.
--- OUTSIDE RECORDS SUMMARY | 2017-05-04 13:33 | External Medical Summary Rpt | CCD ---
Demographics Preferred Language Syrian Marital Status Unknown Latter Day Affiliation Unknown Race Unknown Ethnic Group Unknown Author Author , YASIR COOLEY Address Unknown Phone Immunization No patient found.
--- OUTSIDE RECORDS SUMMARY | 2017-05-04 13:33 | External Medical Summary Rpt | CCD ---
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 Role Phone ANDREINA CAREN, Unavailable Unavailable [...] 10-28-2013 [facility] UNSPECIFIED INC 73273 DIVERTICULI 10-28-2013 [facility] T[facility] COLON INC 38563 OTHER 10-28-2013 [facility]IONS [facility] INC 7820 DISTURBANCE 10-28-2013 CONY GRACIELA OF SKIN SENSATION Procedures Procedure DOS Code Location Performer Comment RADEX 85576 ANDREINA ANDREINA ORBITS 4 CAREN CAREN COMPLETE MINIMUM 4 VIEWS 3D 00827 [facility] RENDERING 4 [facility] W/INTERP INC INC & POSTPROCE SS SUPERVISI ON MRI 12423 ANDREINA ANDREINA SPINAL 4 CAREN CAREN CANAL CERVICAL W/O CONTRAST MATRL BLOOD 50991 [facility] OR[facility] COUNT 4 [facility] COMPLETE INC INC AUTO&AUTO DIFRNTL WBC 3D 03162 [facility] OR[facility] RENDERING 4 [facility] W/INTERP INC INC & [place] [address] [facility] ORTIZ HEAD/BRAI 4 [facility] N W/O INC INC CONTRAST MATERIAL 3D 00822 [facility] OR[facility] RENDERING 4 [facility] INC INC W/INTERP& POSTPROC DIFF WORK STATION COMPREHEN 28270 [facility] SIVE 4 [facility] [place] [address] [facility] OR[facility] CERVICAL 4 [facility] SPINE W/O INC INC CONTRAST MATERIAL RADIOLOGI 52730 [facility] ORTIZ C EXAM 4 [facility] CHEST 2 INC INC VIEWS FRONTAL&L ATERAL RADEX 86083 [facility] ORTIZ HUMERUS 4 [facility] MINIMUM 2 INC INC VIEWS Encounters Encounter Start End Date Code Location Performer Type Date [facility] - 4 4 [facility] OUTPATIEN INC T [facility] - 4 4 [facility] OUTPATIEN INC T EMERGENCY 57665 CON[facility] DONNELLY DEPT 4 4 GRACIELA GRACIELA VISIT HIGH SEVERITY& THREAT FUN EMERGENCY 11755 [facility] 4 4 [facility] DEPARTMEN INC T VISIT MODERATE SEVERITY
--- OUTSIDE RECORDS SUMMARY | 2017-05-04 13:34 | External Medical Summary Rpt ---
Author Author YASIR Miranda, [employer] Organization [employer] Address Unknown Phone Unavailable Results Gas panel in Arterial blood Observa Value Referen Units Interpr Notes Date tion ce etation Range Base -2.4-+2.3 MMOL/L Normal No Oct 4 excess in informati 2017 Arterial on in 12:15 PM blood source data Arteria ACCEPTA No No No No Oct 4 l BLE informa informa informa informa 2017 patency tion in tion in tion in tion in 12:15 Wrist source source source source PM artery data data data data --pre arteria l punctur e Bicarbona 22.0 - MMOL/L Normal No Oct 4 te 26.0 informati 2016 [Moles/vo on in 12:15 PM lume] in source Arterial data blood Oxygen No No No No Oct 4 content informati informati informati informati 2017 in on in on in on in on in 12:15 PM Arterial source source source source blood data data data data Carbon 35.0 - MMHG Normal No Oct 4 dioxide 45.0 informati 2017 [Partial on in 12:15 PM pressure] source in data Arterial blood pH of 7.35 - MMOL/L Normal No Oct 4 Arterial 7.45 informati 2017 blood on in 12:15 PM source data Oxygen 80 - 100 MMHG Low No Oct 4 [Partial informati 2017 pressure] on in 12:15 PM in source Arterial data blood Oxygen 90 - 100 % Normal No Oct 4 saturatio informati 2017 n.calcula on in 12:15 PM rola from source oxygen data partial pressure in Arterial blood SOURCE L No No No No Oct 4 RADIAL informa informa informa informa 2017 tion in tion in tion in tion in 12:15 source source source source PM data data data data Carbon 23 - 27 MMOL/L Normal No Oct 4 dioxide, informati 2017 total on in 12:15 PM [Moles/vo source lume] in data Arterial blood Drugs identified in Urine by Screen method Observa Value Referen Units Interpr Notes Date tion ce etation Range Positive urine drug screen samples are stored for 7 days. Contact the Lab if confirmation of positives is needed. Ampheta NEGATIV <1000 ng/mL No No Apr 26 mine E informa informa 2016 [Presen tion in tion in 12:02 ce] in source source PM Urine data data by Screen method Barbitura <200 ng/mL No No Apr 26 rigo informati informati 2016 [Mass/vol on in on in 12:02 PM ume] in source source Urine by data data Screen method Benzodiaz 200 ng/mL ng/mL High This is Apr 26 epines an 2016 [Mass/vol UNCONFIRM 12:02 PM ume] in ED Serum or result. Plasma by This Screen result is method for medicalpu rposes and/or treatment only. Cocaine <300 ng/g No No Apr 26 [Mass/vol informati informati 2016 ume] in on in on in 12:02 PM Unspecifi source source ed data data specimen Methadone <300 ng/mL No No Apr 26 informati informati 2016 [Mass/vol on in on in 12:02 PM ume] in source source Unspecifi data data ed specimen Opiates <300 ng/mL High This is Apr 26 [Mass/vol an 2016 ume] in UNCONFIRM 12:02 PM Unspecifi ED ed result. specimen This result is for medicalpu rposes and/or treatment only. Phencycli <25 ng/mL No No Apr 26 dine informati informati 2016 [Mass/vol on in on in 12:02 PM ume] in source source Unspecifi data data ed specimen 11-Hydr POSITIV <50 ng/mL Abnorma This is Apr 26 oxy E l an 2017 delta-9 UNCONFI 12:02 RMED PM tetrahy result. drocann This abinol result [Presen is for ce] in medical Unspeci purpose fied s specime and/or n treatme nt only. Urinalysis dipstick W Reflex Microscopic panel in Urine Observa Value Referen Units Interpr Notes Date tion ce etation Range Appeara Clear CLEAR No No No Apr 26 nce of informa informa informa 2017 Urine tion in tion in tion in 12:02 source source source PM data data data Bacteri 3+ O No No No Apr 26 a informa informa informa 2017 [Presen tion in tion in tion in 12:02 ce] in source source source PM Urine data data data sedimen t by Light microsc opy Bilirub NEGATIV NEG No No No Oct 4 in E informa informa informa 2016 [Presen tion in tion in tion in 12:02 ce] in source source source PM Urine data data data by Test strip Erythro NEGATIV NEG No No No Oct 4 cytes E informa informa informa 2016 [Presen tion in tion in tion in 12:02 ce] in source source source PM Urine data data data Color YELLOW YELLOW No No No Oct 4 of informa informa informa 2017 Urine tion in tion in tion in 12:02 source source source PM data data data Glucose NEG No No No Oct 4 [Mass/vol informati informati informati 2017 ume] in on in on in on in 12:02 PM Urine by source source source Test data data data strip Ketones NEGATIV NEG mg/dL No No Oct 4 E informa informa 2016 [Presen tion in tion in 12:02 ce] in source source PM Urine data data by Automat ed test strip Mucus NEGATIV NEG No No No Oct 4 [Presen E informa informa informa 2016 ce] in tion in tion in tion in 12:02 Urine source source source PM sedimen data data data t by Light microsc opy Nitrite NEGATIV NEG No No No Oct 4 E informa informa informa 2016 [Presen tion in tion in tion in 12:02 ce] in source source source PM Urine data data data by Test strip pH of 5.0 - 8.5 No Normal No Oct 4 Urine informati informati 2017 on in on in 12:02 PM source source data data Protein NEG mg/dL No No Oct 4 [Mass/vol informati informati 2017 ume] in on in on in 12:02 PM Urine by source source Automated data data test strip Erythro NONE 0 rbc/hpf No No Oct 4 cytes informa informa 2017 [Presen tion in tion in 12:02 ce] in source source PM Urine data data sedimen t by Light microsc opy Specific 1.005 - No Normal No Oct 4 gravity 1.030 informati informati 2017 of Urine on in on in 12:02 PM source source data data Epithel NONE OCC #/hpf No No Apr 26 ial informa informa 2017 cells.s tion in tion in 12:02 quamous source source PM data data [Presen ce] in Urine sedimen t by Microsc opy high power field Urobili 0.2 NEG E.U./dL No No Apr 26 nogen informa informa 2016 [Presen tion in tion in 12:02 ce] in source source PM Urine data data by Test strip Leukocy [3 O wbc/hpf No No Apr 4 rigo wbc/hpf informa informa 2016 [#/volu ; 5 tion in tion in 12:02 me] in wbc/hpf source source PM Urine ] data data Urinalysis dipstick W Reflex Microscopic panel in Urine Observa Value Referen Units Interpr Notes Date tion ce etation Range Appeara Clear CLEAR No No No Apr 26 nce of informa informa informa 2017 Urine tion in tion in tion in 12:02 source source source PM data data data Bilirub NEGATIV NEG No No No Apr 26 in E informa informa informa 2016 [Presen tion in tion in tion in 12:02 ce] in source source source PM Urine data data data by Test strip Erythro NEGATIV NEG No No No Apr 26 cytes E informa informa informa 2016 [Presen tion in tion in tion in 12:02 ce] in source source source PM Urine data data data Color YELLOW YELLOW No No No Apr 26 of informa informa informa 2017 Urine tion in tion in tion in 12:02 source source source PM data data data Glucose NEG No No No Apr 26 [Mass/vol informati informati informati 2017 ume] in on in on in on in 12:02 PM Urine by source source source Test data data data strip Ketones NEGATIV NEG mg/dL No No Apr 26 E informa informa 2016 [Presen tion in tion in 12:02 ce] in source source PM Urine data data by Automat ed test strip Mucus NEGATIV NEG No No No Apr 26 [Presen E informa informa informa 2017 ce] in tion in tion in tion in 12:02 Urine source source source PM sedimen data data data t by Light microsc opy Nitrite NEGATIV NEG No No No Apr 4 E informa informa informa 2017 [Presen tion in tion in tion in 12:02 ce] in source source source PM Urine data data data by Test strip pH of 5.0 - 8.5 No Normal No Apr 4 Urine informati informati 2017 on in on in 12:02 PM source source data data Protein NEG mg/dL No No Apr 4 [Mass/vol informati informati 2016 ume] in on in on in 12:02 PM Urine by source source Automated data data test strip Specific 1.005 - No Normal No Apr 26 gravity 1.030 informati informati 2016 of Urine on in on in 12:02 PM source source data data Urobili 0.2 NEG E.U./dL No No Apr 4 nogen informa informa 2017 [Presen tion in tion in 12:02 ce] in source source PM Urine data data by Test strip Ammonia [Mass/volume] in Unspecified specimen Observa Value Referen Units Interpr Notes Date ti ce etation Range Ammonia 19 - 54 umoL/L Low No Apr 4 [Mass/vol informati 2016 ume] in on in 11:55 AM Unspecifi source ed data specimen Glucose [Mass/volume] in Capillary blood by Glucometer Observa Value Referen Units Interpr Notes Date ti ce etation Range Glucose 70 - 110 mg/dl Normal No Apr 4 [Mass/vol informati 2017 ume] in on in 11:27 AM Capillary source blood by data Glucomete r Acetaminophen [Mass/volume] in Unspecified specimen Observa Value Referen Units Interpr Notes Date ti ce etation Range Acetamino 10 - 30 ug/mL Low No Apr 4 phen informati 2017 9:00 [Mass/vol on in AM ume] in source Unspecifi data ed specimen Ethanol [Mass/volume] in Serum or Plasma Observa Value Referen Units Interpr Notes Date ti ce etation Range Ethanol 0 - 99 mg/dL Normal ANY Apr 26 [Mass/vol ALCOHOL > 2017 9:00 ume] in OR = 80 AM Serum or MG/DL IS Plasma CONSIDERE D LEGALLYIN TOXICATED UNDER [facility] LAW. Salicylates [Mass/volume] in Serum or Plasma Observa Value Referen Units Interpr Notes Date tion ce etation Range Salicylat 2.8 - mg/dL Normal No Apr 26 es 20.0 informati 2016 9:00 [Mass/vol on in AM ume] in source Serum or data Plasma Creatine kinase.MB [Mass/volume] in Serum or Plasma Observa Value Referen Units Interpr Notes Date tion ce etation Range Creatine 0.0 - 3.6 ng/mL High No Apr 26 kinase.MB informati 2016 9:00 on in AM [Mass/vol source ume] in data Serum or Plasma CBC W Auto Differential panel in Blood Observa Value Referen Units Interpr Notes Date tion ce etation Range Basophils 0 - 0.2 K/MM3 Normal No Apr 26 informati 2016 9:00 [#/volume on in AM ] in source Blood by data Automated count Basophils 0.1 - 2.0 % Normal No Apr 26 /100 informati 2016 9:00 leukocyte on in AM s in source Blood by data Automated count Eosinophi 0.0 - 0.4 K/mm3 Normal No Apr 26 ls informati 2016 9:00 [#/volume on in AM ] in source Blood by data Automated count Eosinophi 0.1 - % Normal No Apr 26 ls/100 12.0 informati 2016 9:00 leukocyte on in AM s in source Blood by data Automated count Granulocy 1.3 - 8.0 K/mm3 Normal No Apr 26 rigo informati 2016 9:00 [#/volume on in AM ] in source Blood by data Automated count Granulocy 37.0 - % Normal No Apr 26 rigo/100 80.0 informati 2016 9:00 leukocyte on in AM s in source Blood by data Automated count Hematocri 42.0 - % Normal No Apr 26 t [Volume 52.0 informati 2016 9:00 on in AM Fraction] source of Blood data Hemoglobi 14.1 - g/dL Low No Apr 26 n 18.0 informati 2016 9:00 [Mass/vol on in AM ume] in source Blood data Lymphocyt 0.7 - 4.5 K/mm3 Normal No Apr 26 es informati 2016 9:00 [#/volume on in AM ] in source Unspecifi data ed specimen by Automated count Lymphocyt 10 - 50 % Normal No Apr 26 es informati 2016 9:00 [#/volume on in AM ] in source Unspecifi data ed specimen by Automated count Erythrocy 27 - 31.2 pg High No Apr 26 te mean informati 2016 9:00 corpuscul on in AM ar source hemoglobi data n [Entitic mass] Erythrocy 31.8 - g/dl Normal No Apr 26 te mean 35.4 inform2016 9:00 corpuscul on in AM ar source hemoglobi data n concentra tion [Mass/vol ume] by Automated count Erythrocy 82.2 - fl High No Apr 26 te mean 97.8 informati 2016 9:00 corpuscul on in AM ar volume source [Entitic data volume] by Automated count Monocytes 0.1 - 1.0 K/mm3 Normal No Apr 26 informati 2016 9:00 [#/volume on in AM ] in source Blood by data Automated count Monocytes 1.7 - 9.3 % Normal No Apr 26 /100 informati 2017 9:00 leukocyte on in AM s in source Blood by data Automated count Platelets 142 - 424 K/mm3 Normal No Apr 26 informati 2016 9:00 [#/volume on in AM ] in source Blood data Erythrocy 4.6 - 6.2 M/mm3 Low No Apr 26 rigo informati 2016 9:00 [#/volume on in AM ] in source Amniotic data fluid Erythrocy 11.5 - % Normal No Apr 26 te 17.5 informati 2016 9:00 distribut on in AM ion width source [Entitic data volume] by Automated count Leukocyte 4.8 - K/MM3 Normal No Apr 26 s 10.8 informati 2016 9:00 [#/volume on in AM ] in source Blood data Lactate [Moles/volume] in Blood Observa Value Referen Units Interpr Notes Date ti ce etation Range Lactate 0.4 - 2.0 mmol/L High An Jan 21 [Moles/vo elevated 2017 3:36 lume] in Lactic AM Blood Acid is suggestiv e of sepsis and shouldbe repeated within 6 hours of initial testing. Comprehensive metabolic 2000 panel in Serum or Plasma Observa Value Referen Units Interpr Notes Date ti ce etation Range Albumin/G 1.1 - 1.8 No Normal No Jan 21 lobulin informati informati 2016 3:36 [Mass on in on in AM ratio] in source source Serum or data data Plasma Albumin 3.4 - 5.0 gm/dL Normal No Jan 21 [Mass/vol informati 2016 3:36 ume] in on in AM Serum or source Plasma data Alkaline 46 - 116 U/L Normal No Jan 21 phosphata informati 2016 3:36 se on in AM [Enzymati source c data activity/ volume] in Serum or Plasma Bilirubin 0.2 - 1.0 mg/dL Normal No Jan 21 .total informati 2017 3:36 [Mass/vol on in AM ume] in source Serum or data Plasma Urea 7 - 18 mg/dL High No Jan 21 nitrogen informati 2016 3:36 [Mass/vol on in AM ume] in source Serum or data Plasma Calcium 8.5 - mg/dL Normal No Jan 21 [Mass/vol 10.1 informati 2016 3:36 ume] in on in AM Serum or source Plasma data Chloride 98 - 107 mmoL/L Normal No Jan 21 [Moles/vo informati 2016 3:36 lume] in on in AM Serum or source Plasma data Carbon 21.0 - mmoL/L Normal No Jan 21 dioxide, 32.0 informati 2016 3:36 total on in AM [Moles/vo source lume] in data Serum or Plasma Creatinin 0.70 - mg/dL High No Jan 21 e 1.30 informati 2016 3:36 [Mass/vol on in AM ume] in source Serum or data Plasma Creatinin 50 - 200 ML/MIN Low No Jan 21 e renal informati 2016 3:36 clearance on in AM source predicted data by Cockcroft -Gault formula Estimated >60 ML/MIN No REFERENCE Jan 21 informati RANGE: 2017 3:36 glomerula on in >60 AM r source ML/MIN/1. filtratio data 73 SQUARE n rate METERSIf (GF this patient is -A merican, then multiply theresult by 1.210. Globulin 1.3 - 3.2 gm/dL Normal No Jan 21 [Mass/vol informati 2017 3:36 ume] in on in AM Serum source data Glucose 74 - 106 mg/dL High No Jan 21 [Mass/vol informati 2016 3:36 ume] in on in AM Serum or source Plasma data Potassium 3.5 - 5.1 mmoL/L Normal No Jan 21 informati 2017 3:36 [Moles/vo on in AM lume] in source Serum or data Plasma Sodium 136 - 145 mmoL/L Normal No Jan 21 [Moles/vo informati 2017 3:36 lume] in on in AM Serum or source Plasma data Aspartate 15 - 37 U/L Normal No Jan 21 informati 2016 3:36 aminotran on in AM sferase source [Enzymati data c activity/ volume] in Serum or Plasma Alanine 12 - 78 U/L Normal No Jan 21 aminotran informati 2016 3:36 sferase on in AM [Enzymati source c data activity/ volume] in Serum or Plasma Protein 6.4 - 8.2 gm/dL Normal No Jan 21 [Mass/vol informati 2016 3:36 ume] in on in AM Serum or source Plasma data CBC W Auto Differential panel in Blood Observa Value Referen Units Interpr Notes Date tion ce etation Range Basophils 0 - 0.2 K/MM3 Normal No Jan 21 informati 2016 3:36 [#/volume on in AM ] in source Blood by data Automated count Basophils 0.1 - 2.0 % Normal No Jan 21 informati 2016 3:36 leukocyte on in AM s in source Blood by data Automated count Eosinophi 0.0 - 0.4 K/mm3 Normal No Jan 21 ls informati 2016 3:36 [#/volume on in AM ] in source Blood by data Automated count Eosinophi 0.1 - % Normal No Jan 21 ls/100 12.0 informati 2016 3:36 leukocyte on in AM s in source Blood by data Automated count Granulocy 1.3 - 8.0 K/mm3 Normal No Jan 21 rigo informati 2016 3:36 [#/volume on in AM ] in source Blood by data Automated count Granulocy 37.0 - % Normal No Jan 21 rigo/100 80.0 informati 2016 3:36 leukocyte on in AM s in source Blood by data Automated count Hematocri 42.0 - % Low No Jan 21 t [Volume 52.0 informati 2016 3:36 on in AM Fraction] source of Blood data Hemoglobi 14.1 - g/dL Low No Jan 21 n 18.0 informati 2016 3:36 [Mass/vol on in AM ume] in source Blood data Lymphocyt 0.7 - 4.5 K/mm3 Normal No Jan 21 es informati 2016 3:36 [#/volume on in AM ] in source Unspecifi data ed specimen by Automated count Lymphocyt 10 - 50 % Normal No Jan 21 es informati 2016 3:36 [#/volume on in AM ] in source Unspecifi data ed specimen by Automated count Erythrocy 27 - 31.2 pg High No Jan 21 te mean informati 2016 3:36 corpuscul on in AM ar source hemoglobi data n [Entitic mass] Erythrocy 31.8 - g/dl Normal No Jan 21 te mean 35.4 inform2016 3:36 corpuscul on in AM ar source hemoglobi data n concentra tion [Mass/vol ume] by Automated count Erythrocy 82.2 - fl Normal No Jan 21 te mean 97.8 informati 2016 3:36 corpuscul on in AM ar volume source [Entitic data volume] by Automated count Monocytes 0.1 - 1.0 K/mm3 Normal No Jan 21 informati 2016 3:36 [#/volume on in AM ] in source Blood by data Automated count Monocytes 1.7 - 9.3 % Normal No Jan 21 /100 informati 2016 3:36 leukocyte on in AM s in source Blood by data Automated count Platelet 7.4 - fl Normal No Jan 21 mean 10.4 informati 2016 3:36 volume on in AM [Entitic source volume] data in Blood by Automated count Platelets 142 - 424 K/mm3 Normal No Jan 21 informati 2016 3:36 [#/volume on in AM ] in source Blood data Erythrocy 4.6 - 6.2 M/mm3 Low No Jan 21 rigo informati 2016 3:36 [#/volume on in AM ] in source Amniotic data fluid Erythrocy 11.5 - % Normal No Jan 21 te 17.5 informati 2016 3:36 distribut on in AM ion width source [Entitic data volume] by Automated count Leukocyte 4.8 - K/MM3 Normal No Jan 21 s 10.8 informati 2016 3:36 [#/volume on in AM ] in source Blood data Drugs identified in Urine by Screen method Observa Value Referen Units Interpr Notes Date tion ce etation Range Positive urine drug screen samples are stored for 7 days. Contact the Lab if confirmation of positives is needed. Ampheta NEGATIV <1000 ng/mL No No Dec 28 mine E informa informa 2016 [Presen tion in tion in 4:00 PM ce] in source source Urine data data by Screen method Barbitura <200 ng/mL No No Dec 28 rigo informati informati 2017 4:00 [Mass/vol on in on in PM ume] in source source Urine by data data Screen method Benzodiaz 200 ng/mL ng/mL High This is Dec 28 epines an 2016 4:00 [Mass/vol UNCONFIRM PM ume] in ED Serum or result. Plasma by This Screen result is method for medicalpu rposes and/or treatment only. Cocaine <300 ng/g No No Dec 28 [Mass/vol informati informati 2016 4:00 ume] in on in on in PM Unspecifi source source ed data data specimen Methadone <300 ng/mL No No Dec 28 informati informati 2016 4:00 [Mass/vol on in on in PM ume] in source source Unspecifi data data ed specimen Opiates <300 ng/mL High This is Dec 28 [Mass/vol an 2016 4:00 ume] in UNCONFIRM PM Unspecifi ED ed result. specimen This result is for medicalpu rposes and/or treatment only. Phencycli <25 ng/mL No No Dec 28 dine informati informati 2016 4:00 [Mass/vol on in on in PM ume] in source source Unspecifi data data ed specimen 11-Hydr POSITIV <50 ng/mL Abnorma This is Dec 28 oxy E l an 2017 delta-9 UNCONFI 4:00 PM RMED tetrahy result. drocann This abinol result [Presen is for ce] in medical Unspeci purpose fied s specime and/or n treatme nt only. Basic metabolic panel in Blood Observa Value Referen Units Interpr Notes Date tion ce etation Range Urea 7 - 18 mg/dL High No Dec 28 nitrogen informati 2016 4:00 [Mass/vol on in PM ume] in source Serum or data Plasma Calcium 8.5 - mg/dL Normal No Dec 28 [Mass/vol 10.1 informati 2016 4:00 ume] in on in PM Serum or source Plasma data Chloride 98 - 107 mmoL/L Normal No Dec 28 [Moles/vo informati 2016 4:00 lume] in on in PM Serum or source Plasma data Carbon 21.0 - mmoL/L Normal No Dec 28 dioxide, 32.0 informati 2016 4:00 total on in PM [Moles/vo source lume] in data Serum or Plasma Creatinin 0.70 - mg/dL Normal No Kahlil 7 e 1.30 informati 2017 4:00 [Mass/vol on in PM ume] in source Serum or data Plasma Estimated >60 ML/MIN No REFERENCE Dec 28 informati RANGE: 2017 4:00 glomerula on in >60 PM r source ML/MIN/1. filtratio data 73 SQUARE n rate METERSIf (GF this patient is -A merican, then multiply theresult by 1.210. Glucose 74 - 106 mg/dL Normal No Dec 28 [Mass/vol informati 2016 4:00 ume] in on in PM Serum or source Plasma data Potassium 3.5 - 5.1 mmoL/L High No Dec 28 informati 2016 4:00 [Moles/vo on in PM lume] in source Serum or data Plasma Sodium 136 - 145 mmoL/L Normal No Dec 28 [Moles/vo informati 2016 4:00 lume] in on in PM Serum or source Plasma data Urinalysis dipstick W Reflex Microscopic panel in Urine Observa Value Referen Units Interpr Notes Date tion ce etation Range Appeara CLEAR CLEAR No No No Dec 25 nce of informa informa informa 2016 Urine tion in tion in tion in 1:10 PM source source source data data data Bilirub NEGATIV NEG No No No Dec 25 in E informa informa informa 2016 [Presen tion in tion in tion in 1:10 PM ce] in source source source Urine data data data by Test strip Erythro NEGATIV NEG No No No Dec 25 cytes E informa informa informa 2016 [Presen tion in tion in tion in 1:10 PM ce] in source source source Urine data data data Color YELLOW YELLOW No No No Dec 25 of informa informa informa 2017 Urine tion in tion in tion in 1:10 PM source source source data data data Glucose NEG No No No Dec 25 [Mass/vol informati informati informati 2016 1:10 ume] in on in on in on in PM Urine by source source source Test data data data strip Ketones NEGATIV NEG mg/dL No No Dec 25 E informa informa 2016 [Presen tion in tion in 1:10 PM ce] in source source Urine data data by Automat ed test strip Mucus NEGATIV NEG No No No Dec 25 [Presen E informa informa informa 2017 ce] in tion in tion in tion in 1:10 PM Urine source source source sedimen data data data t by Light microsc opy Nitrite NEGATIV NEG No No No Kahlil 4 E informa informa informa 2017 [Presen tion in tion in tion in 1:10 PM ce] in source source source Urine data data data by Test strip pH of 5.0 - 8.5 No Normal No Kahlil 4 Urine informati informati 2017 1:10 on in on in PM source source data data Protein NEG mg/dL No No Kahlil 4 [Mass/vol informati informati 2017 1:10 ume] in on in on in PM Urine by source source Automated data data test strip Specific 1.005 - No Normal No Kahlil 4 gravity 1.030 informati informati 2017 1:10 of Urine on in on in PM source source data data Urobili 0.2 NEG E.U./dL No No Kahlil 4 nogen informa informa 2017 [Presen tion in tion in 1:10 PM ce] in source source Urine data data by Test strip Urinalysis dipstick W Reflex Microscopic panel in Urine Observa Value Referen Units Interpr Notes Date tion ce etation Range Appeara CLEAR CLEAR No No No Kahlil 4 nce of informa informa informa 2017 Urine tion in tion in tion in 1:10 PM source source source data data data Bacteri TRACE O No No No Kahlil 4 a informa informa informa 2017 [Presen tion in tion in tion in 1:10 PM ce] in source source source Urine data data data sedimen t by Light microsc opy Bilirub NEGATIV NEG No No No Kahlil 4 in E informa informa informa 2017 [Presen tion in tion in tion in 1:10 PM ce] in source source source Urine data data data by Test strip Erythro NEGATIV NEG No No No Kahlil 4 cytes E informa informa informa 2017 [Presen tion in tion in tion in 1:10 PM ce] in source source source Urine data data data Color YELLOW YELLOW No No No Kahlil 4 of informa informa informa 2017 Urine tion in tion in tion in 1:10 PM source source source data data data Glucose NEG No No No Kahlil 4 [Mass/vol informati informati informati 2017 1:10 ume] in on in on in on in PM Urine by source source source Test data data data strip Ketones NEGATIV NEG mg/dL No No Kahlil 4 E informa informa 2017 [Presen tion in tion in 1:10 PM ce] in source source Urine data data by Automat ed test strip Mucus NEGATIV NEG No No No Kahlil 4 [Presen E informa informa informa 2017 ce] in tion in tion in tion in 1:10 PM Urine source source source sedimen data data data t by Light microsc opy Mucus OCC NONE No No No Kahlil 4 [Presen informa informa informa 2017 ce] in tion in tion in tion in 1:10 PM Urine source source source sedimen data data data t by Light microsc opy Nitrite NEGATIV NEG No No No Kahlil 4 E informa informa informa 2017 [Presen tion in tion in tion in 1:10 PM ce] in source source source Urine data data data by Test strip pH of 5.0 - 8.5 No Normal No Kahlil 4 Urine informati informati 2017 1:10 on in on in PM source source data data Protein NEG mg/dL No No Kahlil 4 [Mass/vol informati informati 2017 1:10 ume] in on in on in PM Urine by source source Automated data data test strip Specific 1.005 - No Normal No Kahlil 4 gravity 1.030 informati informati 2017 1:10 of Urine on in on in PM source source data data Epithel OCC OCC #/hpf No No Kahlil 4 ial informa informa 2017 cells.s tion in tion in 1:10 PM quamous source source data data [Presen ce] in Urine sedimen t by Microsc opy high power field Urobili 0.2 NEG E.U./dL No No Kahlil 4 nogen informa informa 2017 [Presen tion in tion in 1:10 PM ce] in source source Urine data data by Test strip Leukocyte O wbc/hpf No No Kahlil 4 s informati informati 2017 1:10 [#/volume on in on in PM ] in source source Urine data data Drugs identified in Urine by Screen method Observa Value Referen Units Interpr Notes Date tion ce etation Range Positive urine drug screen samples are stored for 7 days. Contact the Lab if confirmation of positives is needed. Ampheta NEGATIV <1000 ng/mL No No Kahlil 4 mine E informa informa 2017 [Presen tion in tion in 1:10 PM ce] in source source Urine data data by Screen method Barbitura <200 ng/mL No No Kahlil 4 rigo informati informati 2017 1:10 [Mass/vol on in on in PM ume] in source source Urine by data data Screen method Benzodiaz 200 ng/mL ng/mL High This is Kahlil 4 epines an 2017 1:10 [Mass/vol UNCONFIRM PM ume] in ED Serum or result. Plasma by This Screen result is method for medicalpu rposes and/or treatment only. Cocaine <300 ng/g No No Kahlil 4 [Mass/vol informati informati 2017 1:10 ume] in on in on in PM Unspecifi source source ed data data specimen Methadone <300 ng/mL No No Kahlil 4 informati informati 2017 1:10 [Mass/vol on in on in PM ume] in source source Unspecifi data data ed specimen Opiates <300 ng/mL High This is Kahlil 4 [Mass/vol an 2017 1:10 ume] in UNCONFIRM PM Unspecifi ED ed result. specimen This result is for medicalpu rposes and/or treatment only. Phencycli <25 ng/mL No No Kahlil 4 dine informati informati 2017 1:10 [Mass/vol on in on in PM ume] in source source Unspecifi data data ed specimen 11-Hydr NEGATIV <50 ng/mL No No Kahlil 4 oxy E informa informa 2017 delta-9 tion in tion in 1:10 PM source source tetrahy data data drocann abinol [Presen ce] in Unspeci fied specime n Basic metabolic panel in Blood Observa Value Referen Units Interpr Notes Date tion ce etation Range Urea 7 - 18 mg/dL High No Kahlil 4 nitrogen informati 2017 [Mass/vol on in 12:00 PM ume] in source Serum or data Plasma Calcium 8.5 - mg/dL Low No Kahlil 4 [Mass/vol 10.1 informati 2016 ume] in on in 12:00 PM Serum or source Plasma data Chloride 98 - 107 mmoL/L High No Kahlil 4 [Moles/vo informati 2017 lume] in on in 12:00 PM Serum or source Plasma data Carbon 21.0 - mmoL/L Normal No Kahlil 4 dioxide, 32.0 informati 2017 total on in 12:00 PM [Moles/vo source lume] in data Serum or Plasma Creatinin 0.70 - mg/dL High No Kahlil 4 e 1.30 informati 2017 [Mass/vol on in 12:00 PM ume] in source Serum or data Plasma Creatinin 50 - 200 ML/MIN Low No Kahlil 4 e renal informati 2017 clearance on in 12:00 PM source predicted data by Cockcroft -Gault formula Estimated >60 ML/MIN No REFERENCE Kahlil 4 informati RANGE: 2017 glomerula on in >60 12:00 PM r source ML/MIN/1. filtratio data 73 SQUARE n rate METERSIf (GF this patient is -A merican, then multiply theresult by 1.210. Glucose 74 - 106 mg/dL Normal No Kahlil 4 [Mass/vol informati 2016 ume] in on in 12:00 PM Serum or source Plasma data Potassium 3.5 - 5.1 mmoL/L High No Kahlil 4 informati 2017 [Moles/vo on in 12:00 PM lume] in source Serum or data Plasma Sodium 136 - 145 mmoL/L Normal No Kahlil 4 [Moles/vo informati 2017 lume] in on in 12:00 PM Serum or source Plasma data Basic metabolic panel in Blood Observa Value Referen Units Interpr Notes Date tion ce etation Range Urea 7 - 18 mg/dL High No Kahlil 4 nitrogen informati 2017 5:55 [Mass/vol on in AM ume] in source Serum or data Plasma Calcium 8.5 - mg/dL Low No Kahlil 4 [Mass/vol 10.1 informati 2017 5:55 ume] in on in AM Serum or source Plasma data Chloride 98 - 107 mmoL/L Normal No Kahlil 4 [Moles/vo informati 2017 5:55 lume] in on in AM Serum or source Plasma data Carbon 21.0 - mmoL/L Normal No Kahlil 4 dioxide, 32.0 informati 2017 5:55 total on in AM [Moles/vo source lume] in data Serum or Plasma Creatinin 0.70 - mg/dL High No Kahlil 4 e 1.30 informati 2016 5:55 [Mass/vol on in AM ume] in source Serum or data Plasma Creatinin 50 - 200 ML/MIN Low No Dec 4 e renal informati 2017 5:55 clearance on in AM source predicted data by Cockcroft -Gault formula Estimated >60 ML/MIN No REFERENCE Kahlil 4 informati RANGE: 2017 5:55 glomerula on in >60 AM r source ML/MIN/1. filtratio data 73 SQUARE n rate METERSIf (GF this patient is -A merican, then multiply theresult by 1.210. Glucose 74 - 106 mg/dL Normal No Kahlil 4 [Mass/vol informati 2016 5:55 ume] in on in AM Serum or source Plasma data Potassium 3.5 - 5.1 mmoL/L Normal No Dec 4 informati 2016 5:55 [Moles/vo on in AM lume] in source Serum or data Plasma Sodium 136 - 145 mmoL/L Normal No Dec 4 [Moles/vo informati 2016 5:55 lume] in on in AM Serum or source Plasma data CBC W Auto Differential panel in Blood Observa Value Referen Units Interpr Notes Date tion ce etation Range Basophils 0 - 0.2 K/MM3 Normal No Dec 3 informati 2016 8:00 [#/volume on in PM ] in source Blood by data Automated count Basophils 0.1 - 2.0 % Normal No Kahlil 3 /100 informati 2016 8:00 leukocyte on in PM s in source Blood by data Automated count Eosinophi 0.0 - 0.4 K/mm3 Normal No Dec 3 ls informati 2016 8:00 [#/volume on in PM ] in source Blood by data Automated count Eosinophi 0.1 - % Normal No Dec 3 ls/100 12.0 informati 2016 8:00 leukocyte on in PM s in source Blood by data Automated count Granulocy 1.3 - 8.0 K/mm3 Normal No Kahlil 3 rigo informati 2016 8:00 [#/volume on in PM ] in source Blood by data Automated count Granulocy 37.0 - % Normal No Dec 3 rigo/100 80.0 informati 2016 8:00 leukocyte on in PM s in source Blood by data Automated count Hematocri 42.0 - % Low No Dec 3 t [Volume 52.0 informati 2016 8:00 on in PM Fraction] source of Blood data Hemoglobi 14.1 - g/dL Low No Dec 3 n 18.0 informati 2017 8:00 [Mass/vol on in PM ume] in source Blood data Lymphocyt 0.7 - 4.5 K/mm3 Normal No Kahlil 3 es informati 2017 8:00 [#/volume on in PM ] in source Unspecifi data ed specimen by Automated count Lymphocyt 10 - 50 % Normal No Kahlil 3 es informati 2016 8:00 [#/volume on in PM ] in source Unspecifi data ed specimen by Automated count Erythrocy 27 - 31.2 pg Normal No Dec 3 te mean informati 2016 8:00 corpuscul on in PM ar source hemoglobi data n [Entitic mass] Erythrocy 31.8 - g/dl Normal No Dec 3 te mean 35.4 informati 2017 8:00 corpuscul on in PM ar source hemoglobi data n concentra tion [Mass/vol ume] by Automated count Erythrocy 82.2 - fl Normal No Dec 3 te mean 97.8 informati 2016 8:00 corpuscul on in PM ar volume source [Entitic data volume] by Automated count Monocytes 0.1 - 1.0 K/mm3 Normal No Kahlil 3 informati 2016 8:00 [#/volume on in PM ] in source Blood by data Automated count Monocytes 1.7 - 9.3 % Normal No Kahlil 3 /100 informati 2017 8:00 leukocyte on in PM s in source Blood by data Automated count Platelet 7.4 - fl Low No Dec 3 mean 10.4 informati 2017 8:00 volume on in PM [Entitic source volume] data in Blood by Automated count Platelets 142 - 424 K/mm3 No No Kahlil 3 informati informati 2017 8:00 [#/volume on in on in PM ] in source source Blood data data Erythrocy 4.6 - 6.2 M/mm3 Low No Kahlil 3 rigo informati 2017 8:00 [#/volume on in PM ] in source Amniotic data fluid Erythrocy 11.5 - % Normal No Dec 3 te 17.5 informati 2017 8:00 distribut on in PM ion width source [Entitic data volume] by Automated count Leukocyte 4.8 - K/MM3 Normal No Kahlil 3 s 10.8 informati 2016 8:00 [#/volume on in PM ] in source Blood data
--- OUTSIDE RECORDS SUMMARY | 2017-05-04 13:34 | External Medical Summary Rpt ---
[...] IS Plasma CONSIDERE D LEGALLYIN TOXICATED UNDER [facility] LAW. Salicylates [Mass/volume] in Serum or Plasma [...]
== END 2017-04-26 15:37 | disposition still patient (30) ==
LOC: ER 08:30
PROVIDERS: Emergency Medicine
DX: R41.82 Altered mental status, unspecified (principal); R60.0 Localized edema; Z88.0 Allergy status to penicillin; I10 Essential (primary) hypertension; E03.9 Hypothyroidism, unspecified; R56.9 Unspecified convulsions; N28.9 Disorder of kidney and ureter, unspecified; F17.210 Nicotine dependence, cigarettes, uncomplicated
CPT/HCPCS: J2310

== ENCOUNTER 2017-05-15 09:37 | Observation (INO) | payer MEDICARE ==
[~2017-05-15] VITALS: Ht 177.8 cm; Wt 94.9 kg
--- OUTSIDE RECORDS SUMMARY | 2017-05-15 10:00 | External Medical Summary Rpt ---
Author [facility] Address Unknown Phone Unavailable Care Team Providers Care Can Reconditioner Name Role Phone NO, (REF) PCP Unavailable Encounter [facility] [id number] Date(s): 04/26/17 - 04/[facility]/17 [facility] [address] [place] [id number]- Discharge Disposition: OP Self Care or Home Attending Physician: HERMILA SEBASTIAN MD-INT Admitting Physician: HERMILA SEBASTIAN MD-INT Referring Physician: HERMILA SEBASTIAN MD-INT Reason for Visit METABOLIC ENCEPHALOPATHY Vital Signs Most recent 1 2 3 to oldest [Reference Range]: Temperature Oral Oral Oral Source (04/27/17 1:00 PM) (04/27/17 7:54 AM) (04/27/17 4:00 AM) Temperature Fahrenheit Fahrenheit Fahrenheit Mode (04/27/17 1:00 PM) (04/27/17 7:54 AM) (04/27/17 4:00 AM) Temperature, 98 Deg F 97.8 Deg F 97.8 Deg F Fahrenheit (04/27/17 1:00 PM) (04/27/17 7:54 AM) (04/27/17 4:00 AM) [96.8-99.7 Deg F] Clinical 36.7 Deg C 36.6 Deg C 36.6 Deg C Temperature, (04/27/17 1:00 PM) (04/27/17 7:54 AM) (04/27/17 4:00 AM) C Heart Rate 68 bpm 74 bpm 74 bpm Monitored (04/27/17 3:00 PM) (04/27/17 2:00 PM) (04/27/17 1:00 PM) [60-100 bpm] Respiratory 11 Breaths/Min 16 Breaths/Min 15 Breaths/Min Rate [14-20 *LOW* (04/27/17 2:00 PM) (04/27/17 1:00 PM) Breaths/Min] (04/27/17 3:00 PM) Blood 111/58 mmHg 127/55 mmHg 113/59 mmHg Pressure (04/27/17 3:00 PM) (04/27/17 2:00 PM) (04/27/17 1:00 PM) [90-140/60-9 0 mmHg] Mean 76 mmHg 79 mmHg 77 mmHg Arterial (04/27/17 3:00 PM) (04/27/17 2:00 PM) (04/27/17 1:00 PM) Pressure (MAP) Mean 77 79 83 Arterial (04/27/17 3:00 PM) (04/27/17 2:00 PM) (04/27/17 1:00 PM) Pressure (MAP)-BMDI Oxygen 96 % 96 % 95 % Saturation (04/27/17 3:00 PM) (04/27/17 2:00 PM) (04/27/17 1:00 PM) [94-100 %] Oxygen Nasal cannula Nasal cannula Nasal cannula Therapy Mode (04/27/17 2:00 PM) (04/27/17 11:00 (04/27/17 9:01 AM) AM) Oxygen Flow 2 Liter/Min 2 Liter/Min 2 Liter/Min Rate (04/27/17 2:00 PM) (04/27/17 11:00 (04/27/17 9:01 AM) AM) Height Estimated Estimated Source (04/27/17 4:20 AM) (04/26/17 4:10 PM) Height Entry [place] Format (04/27/17 4:20 AM) (04/26/17 4:10 PM) Height/Lengt 5 ft 5 ft h, DIVEHI (04/27/17 4:20 AM) (04/26/17 4:10 PM) (ft) Height/Lengt 10 Inch 10 Inch h DIVEHI (04/27/17 4:20 AM) (04/26/17 4:10 PM) CLINICALHEIG 177.8 cm 177.8 cm HT (04/27/17 4:20 AM) (04/26/17 4:10 PM) Weight Bed scale Source (04/26/17 4:10 PM) Weight Entry Metric, kilograms Format (04/26/17 4:10 PM) Weight 108 kg METRIC kg (04/26/17 4:10 PM) CLINICALWEIG 108 kg HT (04/26/17 4:10 PM) Body Surface 2.25 m2 Area (BSA) (04/26/17 4:10 PM) Body Mass 34.2 kg/m2 Index [19-24 *HI* kg/m2] (04/26/17 4:10 PM) Routine Bed scale Weight (04/27/17 4:20 AM) Source Routine Metric Weight Entry (04/27/17 4:20 AM) Format Routine 99.5 kg Weight, (04/27/17 4:20 AM) Kilograms Routine 99.5 kg Weight (04/27/17 4:20 AM) Calculation Body Surface 2.17 m2 Area (BSA), (04/27/17 4:20 AM) Routine [place] Body 72 kg Weight (04/26/17 4:10 PM) Problem List Condition Effective Status Health Informant Dates Status Altered Active patient mental status(Confi rmed) Arthritis(Co Active patient nfirmed) Radiation Active patient exposure(Con firmed) Hypertension Active patient (Confirmed) Malignant Active patient neoplastic disease(Conf irmed) Neck Active patient swelling(Con firmed) Chemotherapy Active patient management, encounter for(Confirme d) Seizures(Con Active patient firmed) Allergies, Adverse Reactions, Alerts Substance Reaction Severity Status penicillins Active Medications ALPRAZolam (ALPRAZolam 0.5 mg oral tablet)2 Tablet(s) Oral every 12 hours as needed Anxiety for 7 Day(s). has 2 mg at home. take 1/2 tab twice daily. gabapentin (gabapentin 300 mg oral capsule) 1 Capsule(s) Oral Two Times A Day. levoFLOXacin (Levaquin 750 mg oral tablet)1 Tablet(s) Oral Interval Every 24 Hours for 7 Day(s). Refills: 0.Ordering provider: DEMETRIO BEAN II, MD-INT levothyroxine (Synthroid 50 mcg (0.05 mg) oral tablet)1 Tablet(s) Oral Every Day. lisinopril (lisinopril 10 mg oral tablet) 1 Tablet(s) Oral Every Day. morphine (morphine 30 mg/12 hr oral capsule, extended release)1 Capsule(s) Oral every 12 hours. oxyCODONE (oxyCODONE 30 mg oral tablet)1 Tablet(s) Oral Four Times A Day as needed for pain. promethazine (promethazine 25 mg oral tablet)1 Tablet(s) Oral Every 6 Hours as needed for nausea/vomiting. Results GENERAL CHEMISTRY Most recent 1 2 to oldest [Reference Range]: Sodium Level 139 mmol/L 139 mmol/L [136-146 (04/27/17 3:54 AM) (04/26/17 6:10 PM) mmol/L] Potassium 5.2 mmol/L 5.4 mmol/L Level *HI* *HI* [3.5-5.1 (04/27/17 3:54 AM) (04/26/17 6:10 PM) mmol/L] Chloride 108 mmol/L 107 mmol/L Level (04/27/17 3:54 AM) (04/26/17 6:10 PM) [102-112 mmol/L] Carbon 25 mmol/L 28 mmol/L Dioxide (04/27/17 3:54 AM) (04/26/17 6:10 PM) Level [21-32 mmol/L] Anion Gap 11 9 [9-20] (04/27/17 3:54 AM) (04/26/17 6:10 PM) Glucose 148 mg/dL 165 mg/dL Level *HI* *HI* [74-106 (04/27/17 3:54 AM) (04/26/17 6:10 PM) mg/dL] Blood Urea 27 mg/dL 25 mg/dL Nitrogen *HI* *HI* [7-22 mg/dL] (04/27/17 3:54 AM) (04/26/17 6:10 PM) Creatinine 1.30 mg/dL 1.70 mg/dL Level (04/27/17 3:54 AM) *HI* [0.70-1.30 (04/26/17 6:10 PM) mg/dL] eGFR 68 mL/min/1.73m2 50 mL/min/1.73m2 [>=60 (04/27/17 3:54 AM) *LOW* mL/min/1.73m (04/26/17 6:10 PM) 2] eGFR 56 mL/min/1.73m2 41 mL/min/1.73m2 NonAfrican *LOW* *LOW* [>=60 (04/27/17 3:54 AM) (04/26/17 6:10 PM) mL/min/1.73m 2] Bun/Creatini 20.8 14.7 ne *HI* (04/26/17 6:10 PM) [8.0-20.0] (04/27/17 3:54 AM) Calcium 8.4 mg/dL 8.5 mg/dL Level *LOW* (04/26/17 6:10 PM) [8.5-10.1 (04/27/17 3:54 AM) mg/dL] Magnesium 2.5 mg/dL 2.5 mg/dL Level *HI* *HI* [1.5-2.4 (04/27/17 3:54 AM) (04/26/17 6:10 PM) mg/dL] CARDIAC SPECIFIC MARKERS Most recent 1 2 to oldest [Reference Range]: Troponin I <0.015 ng/mL Ultra (04/26/17 6:10 PM) [0.015-0.045 ng/mL] HEMATOLOGY Most recent 1 2 to oldest [Reference Range]: WBC [4.2-9.1 8.1 K/uL K/uL] (04/27/17 3:54 AM) RBC 3.89 Million/uL [4.63-6.08 *LOW* Million/uL] (04/27/17 3:54 AM) Hgb 12.4 g/dL [13.7-17.5 *LOW* g/dL] (04/27/17 3:54 AM) Hct 36.4 % [40.1-51.0 *LOW* %] (04/27/17 3:54 AM) MCV 93.6 fL [79.0-94.8 (04/27/17 3:54 AM) fL] MCH 31.9 pg [25.6-32.2 (04/27/17 3:54 AM) pg] MCHC 34.1 Gram/dL [32.2-36.5 (04/27/17 3:54 AM) Gram/dL] Platelet 175 K/uL Count (04/27/17 3:54 AM) [163-369 K/uL] MPV 10.3 fL [9.4-12.4 (04/27/17 3:54 AM) fL] RDW 13.0 % [11.6-14.4 (04/27/17 3:54 AM) %] Neut % 89.2 % [34.0-71.0 *HI* %] (04/27/17 3:54 AM) Neut # 7.25 K/uL [1.56-6.13 *HI* K/uL] (04/27/17 3:54 AM) Lymph % 6.6 % [19.3-53.1 *LOW* %] (04/27/17 3:54 AM) Lymph # 0.54 x10(3)/uL [1.00-3.90 *LOW* x10(3)/uL] (04/27/17 3:54 AM) [place] % 3.7 % [3.0-9.0 %] (04/27/17 3:54 AM) [place] # 0.30 K/uL [0.16-1.00 (04/27/17 3:54 AM) K/uL] Eos % 0.0 % [0.0-7.0 %] (04/27/17 3:54 AM) Eos # 0.00 x10(3)/uL [0.00-0.80 (04/27/17 3:54 AM) x10(3)/uL] Baso % 0.0 % [0.0-1.5 %] (04/27/17 3:54 AM) Baso # 0.00 x10(3)/uL [0.00-0.20 (04/27/17 3:54 AM) x10(3)/uL] Slide Review No (04/27/17 3:54 AM) IG# 0.04 x10(3)/uL [0.00-0.05 (04/27/17 3:54 AM) x10(3)/uL] IG% 0.50 % [0.00-0.60 (04/27/17 3:54 AM) %] TOXICOLOGY Most recent 1 2 to oldest [Reference Range]: UDS pH 6.0 (04/26/17 5:00 PM) UDS Amp NEGATIVE [NEGATIVE] (04/26/17 5:00 PM) UDS Mone NEGATIVE [NEGATIVE] (04/26/17 5:00 PM) UDS Benzo POSITIVE [NEGATIVE] *ABN* (04/26/17 5:00 PM) UDS Moshe NEGATIVE [NEGATIVE] (04/26/17 5:00 PM) UDS Opi POSITIVE [NEGATIVE] *ABN* (04/26/17 5:00 PM) UDS PCP NEGATIVE [NEGATIVE] (04/26/17 5:00 PM) UDS TCA Negative (04/26/17 5:00 PM) UDS THC NEGATIVE [NEGATIVE] (04/26/17 5:00 PM) Microbiology Reports TEST: Nasal Culture STATUS: Order in Progress BODY SITE: SOURCE: Nasal COLLECTED DATE/TIME: 04/26/17 5:10 PMPRELIMINARY REPORTNo growth Immunizations No data available for this section Procedures Procedure Date Related Body Site Diagnosis UNLISTED PROCEDURE NECK/THORAX Social History Social History Response Type Smoking Status Current every day smoker; Smoking Frequency Within Last 30 Days 8 cig a day; Years of Tobacco Use 5; Assessment and Plan Extracted from: Title: Discharge Note Author: BEAN II, Date: 04/27/17 DEMETRIO Freeman MD-INT Ordered: ALPRAZolam, 2 Tab, Oral, Tab, Q12H, PRN Anxiety, has 2 mg at home. take 1/2 tab twice daily, 0 Refill(s) levoFLOXacin, 1 Tab, Oral, Tab, [id number], X 7 Day(s), # 7 Tab, 0 Refill(s), Pharmacy: [facility] nicotine, 1 Patch, TransDermal, Patch, Daily, Routine, Start 04/27/17 9:55:00 EDT Discharge Discharge Orders Discharge - Ordered -- Start: 04/27/17 14:53:00 EDT, Discharge to: Home [facility] Home with outpatient follow-up in 1 week Improved Home with outpatient follow-up in 1 week Hospital Discharge Instructions Patient EducationAddiction and the Family Alcohol and Drug Addiction, Finding Treatment Altered Mental Status Chronic Pain
--- OUTSIDE RECORDS SUMMARY | 2017-05-15 10:00 | External Medical Summary Rpt | CCD ---
Author Author , [facility] Organization Address Unknown Phone Unavailable Allergies, Adverse Reactions, Alerts Results Procedures Social History Treatment Plan Family History Vital Signs Medications Problems Health Concerns Immunization Medical Equipment Mental Status Encounters
--- OUTSIDE RECORDS SUMMARY | 2017-05-15 10:00 | External Medical Summary Rpt ---
Author Author [facility] Address Unknown Phone Unavailable Care Team Providers Care Dental Professional Name Role Phone NO, (REF) PCP Unavailable Encounter [facility] [id number] Date(s): 04/26/17 - 04/27/17 [facility] [address] [place] [address]- Discharge Disposition: OP Self Care or Home [...] 4:20 AM) (04/26/17 4:10 PM) Height Entry [place] Format (04/27/17 4:20 AM) (04/26/17 4:10 PM) Height/Lengt 5 ft 5 ft h, [place] (04/27/17 4:20 AM) (04/26/17 4:10 PM) (ft) Height/Lengt 10 Inch 10 Inch h [place] (04/27/17 4:20 AM) (04/26/17 4:10 PM) CLINICALHEIG [...] m2 Area (BSA), (04/27/17 4:20 AM) Routine [place] Body 72 kg Weight (04/26/17 4:10 PM) [...] x10(3)/uL [1.00-3.90 *LOW* x10(3)/uL] (04/27/17 3:54 AM) [place] % 3.7 % [3.0-9.0 %] (04/27/17 3:54 AM) [place] # 0.30 K/uL [0.16-1.00 (04/27/17 3:54 AM) [...] 0 Refill(s) levoFLOXacin, 1 Tab, Oral, Tab, [id number], X 7 Day(s), # 7 Tab, 0 Refill(s), Pharmacy: [facility] nicotine, 1 Patch, TransDermal, Patch, Daily, [...]
--- OUTSIDE RECORDS SUMMARY | 2017-05-15 10:01 | External Medical Summary Rpt | CCD ---
Demographics Preferred Language Omani Marital Status Unknown Latter-Day Affiliation Unknown Race Unknown Ethnic Group Unknown Author Author , YASIR COOLEY Address Unknown Phone Immunization No patient found.
--- OUTSIDE RECORDS SUMMARY | 2017-05-15 10:01 | External Medical Summary Rpt | CCD ---
Author Author , YASIR FALCONPADMA Address Unknown Phone [email or web address] Care Team Providers Care Molded Frames Assembler Name Role Phone ANDREINA CAREN, Unavailable Unavailable [...] 10-28-2013 [facility]ITIS[facility] UNSPECIFIED [facility] 46220 DIVERTICULI 10-28-2013 [facility] TIS OF [facility] COLON INC 00159 OTHER 10-28-2013 [facility] CONVULSIONS [facility] INC 7820 DISTURBANCE 10-28-2013 [facility] GRACI[facility] OF SKIN SENSATION Procedures Procedure DOS Code [place] Per[place] [address] ANDREINA ANDREINA SPINAL 4 CAREN CAREN CANAL CERVICAL W/O CONTRAST MATRL 3D 50210 [facility] ORTIZ RENDERING 4 [facility] W/INTERP INC INC & POSTPROCE SS SUPERVISI ON RADEX 96518 ANDREINA ANDREINA ORBITS 4 CAREN CAREN COM[place] [address] [place] [address] [facility] ORTIZ HEAD/BRAI 4 [facility] N W/O INC INC CONTRAST MATERIAL 3D 68195 [facility] ORTIZ RENDERING 4 [facility] INC INC W/INTERP& POSTPROC DIFF WORK STATION 3D 13470 [facility] ORTIZ RENDERING 4 [facility] W/INTERP INC INC & POSTPROCE SS SUPERVISI ON BLOOD 00691 [facility] ORTIZ COUNT 4 [facility] COMPLETE INC INC AUTO&[place] [address] [facility] ORTIZ CERVICAL 4 [facility] SPINE W/O INC INC CONTRAST MATERIAL COMPREHEN 99608 [facility] OR[facility]Z SIVE 4 [facility] METABOLIC INC INC PANEL RADEX 76442 [facility] ORTIZ HUMERUS 4 [facility] MINIMUM 2 INC INC VIEWS RADIOLOGI 85558 [facility] ORTIZ C EXAM 4 [facility] CHEST 2 INC INC VIEWS FRONTAL&L ATERAL Encounters Encounter Start End Date Code Location Performer Type Date [facility] DIA[facility] - 4 4 [facility] OUTPATIEN INC T EMERGENCY 72860 [facility] DONNELLY DEPT 4 4 [facility] VISIT HIGH SEVERITY& THREAT [facility] EMERGENCY 67439 [facility] 4 4 [facility] T VISIT [facility] - 4 4 [facility] OUTPATIEN [facility] T
--- OUTSIDE RECORDS SUMMARY | 2017-05-15 10:01 | External Medical Summary Rpt | CCD ---
Demographics Preferred Language Scottish Marital Status Unknown Yarsanism Affiliation Unknown Race Unknown Ethnic Group Unknown Author Author , YASIR COOLEY Address Unknown Phone Immunization No patient found.
--- OUTSIDE RECORDS SUMMARY | 2017-05-15 10:01 | External Medical Summary Rpt | CCD ---
Author Author , YASIR FALCONPADMA Address Unknown Phone [email or web address] Care Team Providers Care Reactor Kettle Operator Name Role Phone ANDREINA CAREN, Unavailable Unavailable [...] 10-28-2013 [facility] UNSPEC[facility]IED [facility] 80816 DIVERTICULI 10-28-2013 [facility] COLON INC 00144 OTHER 10-28-2013 [facility]ULSIONS [facility] INC 7820 DISTURBANCE 10-28-2013 [facility] S[facility] Procedures Procedure DOS Code Location Performer [place] [address] ANDREINA ANDREINA SPINAL 4 CAREN CAREN CANAL CERVICAL W/O CONTRAST MATRL 3D 89238 [facility] ORTIZ RENDERING 4 [facility] W/INTERP INC INC & POSTPROCE SS SUPERVISI ON RADEX 14665 ANDREINA ANDREINA ORBITS 4 CAREN CAREN COMPLETE [place] [address] [place] [address] [facility] ORTIZ HEAD/BRAI 4 [facility] N W/O INC INC CONTRAST MATERIAL 3D 93650 [facility] ORTIZ RENDERING 4 [facility] INC INC W/INTERP& POSTPROC DIFF WORK STATION 3D 79866 [facility] ORTIZ RENDERING 4 [facility] W/INTERP INC INC & POSTPROCE SS SUPERVISI ON BLOOD 90976 [facility] ORTIZ COUNT 4 [facility] COMPLETE INC INC AUTO&[place] [address] [facility] ORTIZ CERVICAL 4 [facility] SPINE W/O INC INC CONTRAST MATERIAL COMPREHEN 28426 [facility] ORTIZ SIVE 4 [facility] METABOLIC INC INC PANEL RADEX 47263 [facility] ORTIZ HUMERUS 4 [facility] MINIMUM 2 INC INC VIEWS RADIOLOGI 96990 [facility] ORTIZ C EXAM 4 [facility] CHEST 2 INC INC VIEWS FRONTAL&L ATERAL Encounters Encounter Start End Date Code Location Performer Type Date [facility] DIANA - 4 4 [facility] OUT[facility]IEN [facility] T EMERGENCY 44622 [facility] DONNELLY DEPT 4 4 [facility] VISIT HIGH SEVERITY& THREAT FUNCJ EMERGENCY 46411 DIANA 4 4 [facility] DEPARTMEN INC T VISIT MODERATE SEVERITY [facility] DIANA - 4 4 [facility] OUT[facility] T
--- OUTSIDE RECORDS SUMMARY | 2017-05-15 10:03 | External Medical Summary Rpt ---
[...] Normal No Oct 4 te 26.0 informati 2017 [Moles/vo on in 12:15 PM lume] in [...] IS Plasma CONSIDERE D LEGALLYIN TOXICATED UNDER [facility] LAW. Salicylates [Mass/volume] in Serum or [...]
--- OUTSIDE RECORDS SUMMARY | 2017-05-15 10:03 | External Medical Summary Rpt ---
[...] IS Plasma CONSIDERE D LEGALLYIN TOXICATED UNDER [facility] LAW. Salicylates [Mass/volume] in Serum [...] strip Mucus NEGATIV NEG No No No Akhlil 4 [Presen E informa informa informa 2017 [...]
[2017-05-15 10:22] LABS: HEMOGLOBIN 12.3 g/dL (14.1-18.0); LYMPH # 0.9 K/mm3 (0.7-4.5)
[2017-05-15 10:43] LABS: BUN 46 mg/dL (7-18)
[2017-05-15 10:47] LABS: GFR (ESTIMATED) 25 ML/MIN (>60)
--- NOTE | 2017-05-15 11:46 | RADIOLOGY REPORT PS360 ---
CT ABD PELVIS W/O CONTRAST HISTORY: FLANK PAIN bilateral flank pain with hematuria Patient Age: 62 years: Male Ordering Physician: Cheryl Leger MD TECHNIQUE: COMPARISON : FINDINGS Lung calabrese. No prominent findings. Minor fibrotic changes and atelectasis at posterior sulcus region bilaterally similar to previous studies Abdomen and pelvis:. Lack of oral and IV contrast decreases sensitivity. Liver. Stable. No focal lesions of concern on this noncontrast study. Pancreas unremarkable on this noncontrast study as well Gallbladder. Partially contracted likely sludge but no calcified stones evident Spleen unremarkable. . No kidney stones nor obstructive uropathy either kidney. Ureters unremarkable. RIGHT KIDNEY unremarkable. Stable LEFT KIDNEY. Large 9.1 cm transverse, 9 seem height, 6 similar AP benign-appearing cyst again seen at the anterior aspect of left kidney a similar to the January study cyst anterior aspect left kidney Aorta normal in caliber with diffuse scarring calcification including mild calcification at origin of renal arteries right more so than left. No retroperitoneal nor mesenteric nor pelvic adenopathy nor mass. . No bowel dilatation or obstruction. Small bowel unremarkable stomach unremarkable. Pelvis. Bladder normal wall thickness normal size prostate again generous stool noted at rectum. IMPRESSION No acute findings abdomen or pelvis. No urinary tract calculi nor obstruction. Prominent benign appearing cyst anterior aspect left kidney again noted similar to January . Moderate stool most generous stool is seen at the rectosigmoid and right colon may reflect mild constipation but unimpressive overall. Suspect minimal sludge in gallbladder but no calcified stones.
--- NOTE | 2017-05-15 11:50 | Emergency Room Report ---
History of Present Illness Time Seen by MD Chun Presenting Problem in Triage Pt arrived:Walked Presenting Problem:LEFT SIDE CHEST PAIN; BILLAT RIB PAIN Onset of symptoms date/time:/ or onset unknown for:MEDICAL HX UNKNOWN Treatment Prior to Arrival: [employer] Provided by: Sepsis Risk Assessment: Temp: 98 B/P: MAP: Pulse: 74 Resp: 18 Recent fever? N Clinical Suspician of Infection? N Mental Status: 1 - Regular (Normal Baseline) Sepsis Risk:Low Sepsis Risk Have you (or family members/close friends) recently traveled outside the [place]? N If Yes, where/when: Have you had exposure to infectious disease within the past month? TB? Other? Specify: L flank pain, no urinary sx, just not feeling well, was tossing and turning in bed all night. Hx CRI, seen by Nephrology last week. Has been spending days with a family friend who is dying, and didn't eat or sleep well this past weekend as a result. He has chronic gross hematuria. No chest pain but had some LUE pain earlier this morning, now resolved. No SOB, no leg swelling or calf pain. No headache. Has hx of brain tumor, and continues to have tumor "behind right eye"; no new cephalgia; no new neurological sx; has a hx of kidney, lung tumors as well and is followed by Dr. Harris. No fever or vomiting. No abdominal pain. No blood in stool or emesis. ALLERGIES Coded Allergies: Penicillins (05/15/17) Home Medications Reported Medications Alprazolam 2 MG PO TID OXYCODONE HCL (Oxycodone Hcl) 30 MG PO Q6HP PRN PAIN #120 TAB Gabapentin 300 MG PO BID #60 MORPHINE SULFATE SR/ER (Morphine Sulfate ER) 30 MG PO Q12 Levothyroxine Sodium (Synthroid 0.05MG) 0.05 MG PO DAILY History Medical History General CAD? No Angina: No MD: No Hypertension? Yes Hyperlipidemia? No CHF? No DVT? No PE? No COPD? No Asthma? No Anemia? No GERD? No Gastric ulcers? No GI Bleed? No Hernia? No Thyroid Problems? Yes Hypothyroidism? Yes CVA? No Seizures? Yes Diabetes? No Renal Insuffiency? Yes End Stage Renal Disease? No UTI? Yes Stones? Yes BPH? No GB Disease: No Nephritic Syndrome? No Asplenia? No Hepatitis? No Sickle Cell Disease? No Arthritis? Yes Migraines? No Cataracts? No Glaucoma? No MRSA? No HIV? No TB? No Anxiety? Yes Depression? No Cancer? Yes Site: NECK/THROAT/LYMPH NODES Immunization Hx Ped.Immunizations UTD Yes DT/Tetanus 1-4 Years Ago Flu 2015-16FSN Pneumonia Received In Past Surgical Hx Previous Surgery?Y RADICAL NECK DISSECTION LYMPH NODES REMOVAL BILATERAL KNEES X9 RIGHT SHOULDER KIDNEY SURGERY TUMOR REMOVED FROM LUNG Family History Family Hx Diabetes No CAD No Hypertension Yes Hyperlipidemia Yes Cancer Yes TB No Social History Smoking Hx Smoker: Current Every Day Smoker Tobacco: Yes Type Cigarettes Packs/day < 1 Pack Alcohol Alcohol: No Review of Systems All Other Systems Reviewed and Negative Genitourinary see HPI. Psychiatric/Neurological denies no symptoms reported Physical Exam Vital Signs Vital Signs Date Time Temp Pulse Resp B/P Pulse O2 O2 Flow FiO2 Ox Delivery Rate 05/15 1331 71 79/47 05/15 1330 75 84/50 05/15 1330 68 80/45 05/15 1300 75 18 100/54 99 05/15 1230 70 18 98/50 99 05/15 0947 98.0 74 18 99 General Appearance normal appearance, WD/WN, no apparent distress Eye Exam - bilateral eye normal exam, bilateral eye PERRL, bilateral eye EOMI (no diplopia) Neck normal inspection, non-tender, supple, full range of motion Respiratory Status Yes: trachea midline, chest symmetrical, non tender chest. No: respiratory distress, tender on palpation, use of accessory muscles, pain on inspiration, pain on expiration, productive cough, non productive cough. 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 Glascow Coma Scale Glascow Coma Scale Response Value EYE response: 4 Spontaneously 4 MOTOR response: 6 OBEYS 6 VERBAL response: 5 Oriented & Converses 5 Total 15 Skin intact, normal color Medical Decision Making LABS/Meds/Orders Pt receiving controlled substance in ED? No Results/Orders Laboratory Tests 05/15/17 1258: Urine Color YELLOW, Urine Appearance CLEAR, Urine pH 6.0, Ur Specific [place] >= 1.030, Urine Protein TRACE H, Urine Ketones NEGATIVE, Urine Blood NEGATIVE, Urine Nitrate NEGATIVE, Urine Bilirubin NEGATIVE, Urine Urobilinogen 0.2, Ur Leukocyte Esterase NEGATIVE, Urine RBC NONE, Urine WBC OCC, Ur Squamous Epith Cells OCC, Urine Bacteria 3+, Hyaline Casts 3-5, Urine Mucus 1+, Urine Glucose NEGATIVE 05/15/17 0955: Sodium 139, Potassium 4.8, Chloride 107, Carbon Dioxide 25, BUN 46 H, Creatinine 2.6 H, Estimated Creat Clear 40 L, Estimated GFR (MDRD) 25, Glucose 105, Calcium 9.2, Total Bilirubin 0.6, AST 20, ALT 14, Alkaline Phosphatase 61, Creatine Kinase 363 H, CK-MB (CK-2) Rel Index 1.4, CK and CKMB Interp 5.2 H, Troponin I < 0.02, Total Protein 7.0, Albumin 3.7, Globulin 3.3 H, Albumin/ Globulin Ratio 1.1, WBC 4.1 L, RBC 3.96 L, Hgb 12.3 L, Hct 37.7 L, MCV 95.1, RDW 13.3, Plt Count 169, MPV 8.1, Gran % 62.7, Gran # 2.6, Lymphocytes % 22.0, Monocytes % 11.4 H, Eosinophils % 2.8, Basophils % 1.1, Lymphocytes # 0.9, Monocytes # 0.5, Eosinophils # 0.1, Basophils # 0.1, PUBS MCHC 32.7, MCH 31.1 Current Medication Orders Sig/Vinh Start time Last Medication Dose Route Stop Time Status Admin Sodium Chloride 1,000 ML .STK-MED ONE 05/15 1328 DC IV Sodium Chloride 1,000 ML .Q1H1M 05/15 1300 DC 05/15 IV 05/15 1400 1330 Sodium Chloride 10 ML PRN PRN 05/15 1300 AC IV 05/16 1258 Sodium Chloride 10 ML PRN PRN 05/15 1015 AC IV 05/16 1013 Orders Procedure Date/time Status DIET-NOTHING BY MOUTH 05/15 L Complete DIET-NOTHING BY MOUTH 05/[address] HEAD REQ 05/15 1321 Complete ORTHOSTATIC B/P 05/15 1321 Active CULTURE, URINE 05/15 1258 Active URINALYSIS/COMPLETE 05/[address] ABD/PELVIS REQ 05/15 1029 Active ELECTROCARDIOGRAM REQUEST 05/15 1013 Active CHEST(2 VIEWS-NOT PORTABLE) 05/15 1013 Active IV SALINE LOCK 05/15 1013 Active CBC WITH AUTO DIFF 05/15 1013 Complete CARDIAC ENZYMES 05/15 1013 Complete CHEM 12 PROFILE 05/15 1013 Complete CM/EKG CM/EKG EKG rate, NSR, rhythm, no evid. of ischemic chgs, no ectopy, normal QRS, normal NH, normal EKG (NSR 74), compared w/(date of old) (04/26/17 no change from prior) XRAY/CT/US XRAY/CT/US 1 XRAY chest XR interpretation by reviewed by me Xray Results normal/NAD, no infiltrates, normal heart size, normal lung inflation wade CT abdomen, pelvis CT interpretation by reviewed by me (report reviewed) Time results known: 1329 CT Results normal/NAD, constipation o/w neg acute XRAY/CT/US [address] interpretation by reviewed by me (report reviewed) Time results known: 1411 CT Results abnormal, neg acute; ethmoid sinusitis, old infarct Consult MD Physician Consult 1 Time Called 1329 Reason Pt. Condition, Admission Physician Consult 2 Consult/PCP Dr. Leslie to admit. Time Called 1400 Reason Admission Comments Marissa called Dr. Leslie; he will admit Progress ED Progress Notes 1 Date 05/15/17 Time 1254 Comment Waiting on urine specimen still ED Progress Notes 2 Date 05/15/17 Time 1328 Comment Patient hypotensive, dizzy with standing, volume contracted (with admission for same several months ago); Dr. Leslie paged for admission. CT ordered but clinically is orthostatic. Receiving IVF currently Departure Departure Time of Disposition 1155 Disposition DC Home or Self Care(routine) Clinical Impression Primary Impression: Dehydration Secondary Impressions: Flank pain, History of renal insufficiency syndrome, Orthostatic hypotension Condition STABLE Referrals Veronica CEBALLOS,Griffin Leslie MD,Roger Altman (Family) Patient Instructions DI for Flank Pain Additional Instructions Recommend Tylenol, very close follow up with your family doctor in one to two days, and Dr. Martin as needed. Discharge Counseling Counseled pt/family regarding diagnosis, test results, medications/RX, home care, follow up needs ED Critical Care Critical Care No at 1412
[2017-05-15 13:05] LABS: URINE BILIRUBIN - DIPSTICK NEGATIVE (NEG); URINE BLOOD NEGATIVE (NEG)
[2017-05-15 13:16] LABS: URINE SQUAMOUS CELLS OCC #/hpf (OCC)
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
--- OUTSIDE RECORDS SUMMARY | 2017-05-15 14:48 | External Medical Summary Rpt | CCD ---
Author Author , YASIR COOLEY Address Unknown Phone Care Team Providers Care Service Member Name Role Phone Samina NGUYEN, Unavailable Unavailable Samina NGUYEN ANDREINA CAREN, Unavailable Unavailable ANDREINA CAREN ANDREINA CAREN, Unavailable Unavailable ANDREINA CAREN CONY GRACIELA, CONY Unavailable Unavailable GRACIELA CONY GRACIELA, CONY Unavailable Unavailable [facility] Un[facility] Un[facility], [facility] Purpose Continuity of Care Document - 09-20-2012 [...] 10-28-2013 [facility] SINUSITIS[facility] UNSPECIFIED INC 13634 DIVERTICULI 10-28-2013 [facility] TIS OF [facility] COLON INC 12566 OTHER 10-28-2013 [facility] CONVULSIONS [facility] INC 7820 DISTURBANCE 10-28-2013 CONY GRACIELA OF SKIN SENSATION 305.50 305.50 09-20-2012 [place] OPIOID [facility] C 780.39 780.39 09-20-2012 [place] OTHER [facility] CONVULSIONS Hospital 786.50 786.50 09-20-2012 [place] CHEST PAIN [facility] 244.9 Hypothyroid [facility] 401.1 Benign [facility] n [id number] Active [facility] [id number] Chronic [facility] Allergies, Adverse Reactions, Alerts Type Drug Allergy [...] Order Detail nces retati t Range on Urinalysis with microscopy (05-15-2017 12:58) Urine CLEAR CLEAR complet appeara 017 CLEAR L ed nce 12:58 determi nation Bacteri 05-15- 3+ 3+ L O complet a 017 ed detecti 12:58 on in urine sedimen t by Urine NEGATIV NEG complet total 017 E ed bilirub 12:58 NEGATIV in E L detecti on by test Urine NEGATIV NEG complet blood 017 E ed detecti 12:58 NEGATIV on E L Urine YELLOW YELLOW complet color 017 YELLOW ed 12:58 L Glucose = NEG complet ur 017 NEGATIV ed test 12:58 E strip Hyaline 05-15- 3-5 3-5 NONE complet casts 017 L ed detecti 12:58 #/lpf on in urine sedimen Urine NEGATIV NEG complet ketones 017 E ed 12:58 NEGATIV detecti E L on by mg/dL automat ed rigo Mucus NEGATIV NEG complet detecti 017 E ed on in 12:58 NEGATIV urine E L sedimen t by lig Mucus 05-15- 1+ 1+ L NONE complet detecti 017 ed on in 12:58 urine sedimen t by lig Urine 05-15- NEGATIV NEG complet nitrite 017 E ed 12:58 NEGATIV detecti E L on by test strip Urine = 6.0 5.0-8.5 complet pH 017 ed 12:58 Urine 05-15- = TRACE NEG complet protein 017 mg/dL ed 12:58 measure ment by automat ed t Erythro 05-15- NONE 0 complet cytes 017 NONE L ed detecti 12:58 rbc/hpf on in urine sedimen t Urine 05-15-2 > = 1.005-1 complet specifi 017 1.030 .030 ed c 12:58 gravity measure ment [place] OCC OCC OCC complet s 017 L ed epithel 12:58 #/hpf ial cells detecti on in u Urine 0.2 0.2 NEG complet urobili 017 L ed nogen 12:58 E.U./dL detecti on by test str Urine = OCC O complet leukocy 017 wbc/hpf ed rigo 12:58 count (number /volume ) Comprehensive metabolic panel (05-15-2017 09:55) Protein = 7.0 6.4-8.2 complet total 017 gm/dL ed ser/shahram 09:55 s ALT = 14 12-78 complet (SGPT) 017 U/L ed ser/shahram 09:55 s Serum = 20 15-37 complet or 017 U/L ed plasma 09:55 asparta te aminotr ansfera Serum = 139 136-145 complet sodium 017 mmoL/L ed measure 09:55 ment Serum = 4.8 3.5-5.1 complet potassi 017 mmoL/L ed um 09:55 measure ment Serum = 105 74-106 complet or 017 mg/dL ed plasma 09:55 glucose measure ment (mas Serum = 3.3 1.3-3.2 complet globuli 017 gm/dL ed n 09:55 measure ment (mass/v olume) Estimat = 25 >60 complet ed 017 ML/MIN ed glomeru 09:55 lar filtrat ion rate (GF Comment: REFERENCE RANGE: >60 ML/MIN/1.73 SQUARE METERS Comment: If this patient is -Mongolian, then multiply the Comment: result by 1.210. Estimat = 40 50-200 complet ion of 017 ML/MIN ed creatin 09:55 ine renal clearan ce Serum = 2.6 0.70-1. complet or 017 mg/dL 30 ed plasma 09:55 creatin ine measure ment ( Carbon = 25 21.0-32 complet dioxide 017 mmoL/L .0 ed 09:55 measure ment Serum = 107 98-107 complet or 017 mmoL/L ed plasma 09:55 chlorid e measure ment (mo Serum = 9.2 8.5-10. complet or 017 mg/dL 1 ed plasma 09:55 calcium measure ment (mas Serum = 46 7-18 complet or 017 mg/dL ed plasma 09:55 urea nitroge n measure men Serum = 0.6 0.2-1.0 complet or 017 mg/dL ed plasma 09:55 total bilirub in measure m Serum = 61 46-116 complet or 017 U/L ed plasma 09:55 alkalin e phospha tase tod Serum = 3.7 3.4-5.0 complet or 017 gm/dL ed plasma 09:55 albumin measure ment (mas Serum = 1.1 1.1-1.8 complet or 017 ed plasma 09:55 albumin /globul in mass ra Cardiac enzymes (05-15-2017 09:55) Serum < 0.02 0.00-0. complet or 017 ng/mL 06 ed plasma 09:55 troponi n i.cardi ac measu Serum = 363 39-308 complet or 017 U/L ed plasma 09:55 creatin e kinase measure m Serum = 5.2 0.0-3.6 complet or 017 ng/mL ed plasma 09:55 creatin e kinase MB measu Serum = 1.4 0-4.0 complet or 017 U/L ed plasma 09:55 creatin e kinase MB (CK-M CBC w auto diff (05-15-2017 09:55) Blood = 2.6 1.3-8.0 complet granulo 017 K/mm3 ed cytes 09:55 automat ed count (numb Automat = 2.8 % 0.1-12. complet ed 017 0 ed blood 09:55 eosinop hils/10 0 leukocy t Automat = 0.1 0.0-0.4 complet ed 017 K/mm3 ed blood 09:55 eosinop hil count Baso % = 1.1 % 0.1-2.0 complet 017 ed 09:55 Automat 2 = 0.1 0-0.2 complet ed 017 K/MM3 ed blood 09:55 basophi l count (count/ vo Blood = 4.1 4.8-10. complet leukocy 017 K/MM3 8 ed rigo 09:55 count (number /volume ) Automat = 13.3 11.5-17 complet ed 017 % .5 ed erythro 09:55 cyte distrib ution width Red = 3.96 4.6-6.2 complet blood 017 M/mm3 ed cell 09:55 count Blood = 169 142-424 complet platele 017 K/mm3 ed t count 09:55 Automat = 8.1 7.4-10. complet ed 017 fl 4 ed blood 09:55 platele t mean volume tod [place] % = 11.4 1.7-9.3 complet 017 % ed 09:55 Absolut = 0.5 0.1-1.0 complet e 017 K/mm3 ed monocyt 09:55 e count Automat = 95.1 82.2-97 complet ed 017 fl .8 ed erythro 09:55 cyte mean corpusc ular v Automat = 32.7 31.8-35 complet ed 017 g/dl .4 ed erythro 09:55 cyte mean corpusc ular h Mean = 31.1 27-31.2 complet corpusc 017 pg ed ular 09:55 hemoglo bin (MCH) determ Lymphoc = 22.0 10-50 complet yte 017 % ed count, 09:55 blood, automat ed Absolut = 0.9 0.7-4.5 complet e 017 K/mm3 ed lymphoc 09:55 yte count Blood = 12.3 14.1-18 complet hemoglo 017 g/dL .0 ed bin 09:55 measure ment (mass/v olum Blood = 37.7 42.0-52 complet hematoc 017 % .0 ed rit 09:55 (volume fractio n) Granulo = 62.7 37.0-80 complet cyte 017 % .0 ed percent 09:55 age Gas panel in Arterial blood (04-26-2017 12:15) [...] um 017 mg/dL ed SerPl-m 06:14 Cnc Magnesium SerPl-mCnc (01-23-2017 02:29) Magnesi 2.0 1.9-2.4 complet um 017 mg/dL ed SerPl-m 02:29 Cnc Ca-I SerPl ISE-sCnc (01-23-2017 02:29) Ca-I 4.5 4.6-5.1 complet SerPl 017 mg/dL ed ISE-sCn 02:29 c Phosphate SerPl-mCnc (01-22-2017 02:27) Phospha 3.7 2.5-4.5 complet te 017 mg/dL ed SerPl-m 02:27 Cnc Magnesium SerPl-mCnc (01-22-2017 02:27) Magnesi 2.1 1.9-2.4 complet um 017 mg/dL ed SerPl-m 02:27 Cnc Ca-I SerPl ISE-sCnc (01-22-2017 02:27) Ca-I 4.4 4.6-5.1 complet SerPl 017 mg/dL ed ISE-sCn 02:27 c MDRO Wnd (01-21-2017 16:12) Bacteri [id number] complet a XXX 017 06 No ed Anaerob 16:12 growth e+Aerob (qualif e Cult ier value) SCT NG1 NO GROWTH DAY 1. L CC XXX NOTAP complet VC-aCnc 017 NOT ed 16:12 APPLICA BLE L NT-proBNP SerPl-mCnc (01-21-2017 12:30) NT-proB 143 0-899 complet DIRECTOR OF RESPIRATORY THERAPY 017 pg/mL ed SerPl-m 12:30 Cnc T4 [...] 49-320 complet SerPl-c 017 ed Cnc 12:30 Magnesium SerPl-mCnc (01-21-2017 12:30) Magnesi 2.2 1.9-2.4 complet um 017 mg/dL ed SerPl-m 12:30 Cnc Sodium Ur-sCnc (01-21-2017 12:30) Sodium 88 complet Ur-sCnc 017 mmol/L ed 12:30 Creat Ur-mCnc (01-21-2017 12:30) Creat 22 complet Ur-mCnc 017 mg/dL ed 12:30 Ca-I SerPl ISE-sCnc (01-21-2017 12:30) Ca-I 4.1 4.6-5.1 complet SerPl 017 mg/dL ed ISE-sCn 12:30 c Bacteria XXX Anaerobe+Aerobe Cult (01-21-2017 11:16) Bacteri [id number] complet a XXX 017 06 No ed [...] ed [Presen 13:10 ce] in Urine Color YELLOW YELLOW complet of 017 ed Urine 13:10 Ketones NEGATIV NEG complet 017 E ed [Presen 13:10 ce] in Urine by Automat ed test strip Mucus NEGATIV NEG complet [Presen 017 E ed ce] in 13:10 Urine sedimen t by Light microsc opy Mucus OCC NONE complet [Presen 017 ed ce] in 13:10 Urine sedimen t by Light microsc opy Nitrite NEGATIV NEG complet 017 E ed [Presen 13:10 ce] in Urine by Test strip Epithel OCC OCC complet ial 017 ed cells.s 13:10 quamous [Presen ce] in Urine sedimen t by Microsc opy high power field Urobili 0.2 NEG complet nogen 017 ed [Presen 13:10 ce] in Urine by Test strip Drugs identified in Urine by Screen method (12-25-2016 13:10) Ampheta NEGATIV <1000 complet mine 017 E ed [Presen 13:10 ce] in Urine by Screen method 11-Hydr NEGATIV <50 complet oxy 017 E ed [...] 013 mmoL/L ed SerPl-s 09:05 Cnc Chlorid 107 98-107 complet e 013 mmoL/L ed SerPl-s 09:05 Cnc CO2 36 21.0-32 complet SerPl-s 013 mmoL/L .0 ed Cnc 09:05 Calcium 8.7 8.5-10. complet 013 mg/dL 1 ed [...] 013 mg/dL ed SerPl-m 09:05 Cnc AST 01-16-2 8 U/L 15-37 complet SerPl-c 013 ed Cnc 09:05 ALT 01-16-2 29 U/L 30-65 complet SerPl-c 013 ed Cnc 09:05 ALP 01-16-2 90 U/L 50-136 complet SerPl-c 013 ed Cnc 09:05 URINALYSIS/COMPLETE (01-15-2013 23:04) URINE 06-25-2 YELLOW YELLOW complet COLOR 013 ed 23:04 URINE -25-2 CLEAR CLEAR complet APPEARA 013 ed NCE 23:04 URINE -25-2 NEGATIV NEG complet GLUCOSE 013 E ed - 23:04 DIPSTIC K URINE -25-2 NEGATIV NEG complet BILIRUB 013 E ed [...] mg/dL ed - 23:04 DIPSTIC K URINE 06-25-2 0.2 NEG complet UROBILI 013 E.U./dL ed NOGEN - 23:04 DIPSTIC K URINE 06-25-2 NEGATIV NEG complet NITRATE 013 E ed [...] /Glob 013 ed SerPl-m 22:05 Rto Bilirub 0.5 0.2-1.0 complet 013 mg/dL ed SerPl-m 22:05 Cnc AST 10 U/L 15-37 complet SerPl-c 013 ed Cnc 22:05 ALT 26 U/L 30-65 complet SerPl-c 013 ed Cnc 22:05 ALP 01-15-2 88 U/L 50-136 complet SerPl-c 013 ed Cnc 22:05 Acetamin SerPl-nc (01-15-2013 22:05) Acetami 01-15-2 0 ug/mL 10-30 complet n 013 ed SerPl-m 22:05 Cnc Ethanol Bld-mCnc (01-15-2013 22:05) Ethanol 01-15-2 0 mg/dL 0-99 complet 013 ed Bld-mCn 22:05 c Salicylates SerPl-mCnm (01-15-2013 22:05) Salicyl 01-15-2 3.5 2.8-20. complet ates 013 mg/dL 0 ed SerPl-m 22:05 Cnc CBC with AUTO DIFF (01-15-2013 22:05) WBC # 25-2 3.4 4.8-10. complet Bld 013 K/MM3 8 ed Auto 22:05 RBC # 25-2 4.31 4.6-6.2 complet Bld 013 M/mm3 ed Auto 22:05 Hgb 25-2 13.6 14.1-18 complet Bld-mCn 013 g/dL .0 ed c 22:05 Hct Fr 01-15-2 40.6 % 42.0-52 complet Bld 013 .0 ed 22:05 MCV RBC 01-15-2 94.3 fl 82.2-97 complet 013 .8 ed 22:05 MCH RBC 01-15-2 31.6 pg 27-31.2 complet Qn 013 ed Auto 22:05 MEAN 01-15-2 33.5 31.8-35 complet CORPUSC 013 g/dl .4 ed ULAR 22:05 HGB CONC RDW RBC 25-2 13.6 % 11.5-17 complet Auto 013 .5 ed 22:05 Platele -25-2 172 142-424 complet t Bld 013 K/mm3 ed Ql 22:05 Manual MEAN 25-2 7.5 fl 7.4-10. complet PLATELE 013 4 ed T 22:05 VOLUME Granulo 01-15-2 51.5 % 37.0-80 complet cytes 013 .0 ed Fr Bld 22:05 Auto LYMPH % 01-15-2 35.0 % 10-50 complet 013 ed 22:05 Monocyt 25-2 7.5 % 1.7-9.3 complet es Fr 013 ed Bld 22:05 Auto Eosinop 06-25-2 4.9 % 0.1-12. complet hil Fr 013 0 ed Bld 22:05 Auto Basophi 25-2 1.0 % 0.1-2.0 complet ls Fr 013 ed Bld 22:05 Auto Granulo -25-2 1.8 1.3-8.0 complet cytes # 013 K/mm3 ed Bld 22:05 Auto Lymphoc -25-2 1.2 0.7-4.5 complet ytes Fr 013 K/mm3 ed Bld 22:05 Auto Monocyt -25-2 0.3 0.1-1.0 complet es # 013 K/mm3 ed Bld 22:05 Auto Eosinop 25-2 0.2 0.0-0.4 complet hil # 013 K/mm3 ed Bld 22:05 Auto Basophi 25-2 0.0 0-0.2 complet ls # 013 K/MM3 [...] mg/dL 1 ed SerPl-m 15:10 Cnc Prot 7.3 6.4-8.2 complet SerPl-m 013 gm/dL ed [...] CK MB SerPl-mCnc (09-20-2012 15:10) CK MB 0.8 0.0-3.6 complet SerPl-m 013 ng/mL ed Cnc 15:10 TROPONIN I (09-20-2012 15:10) TROPONI Less 0.00-0. complet N I 013 than 06 ed 15:10 0.02 ng/mL CBC with AUTO DIFF (09-20-2012 15:10) WBC # 09-20-2 6.7 4.8-10. complet Bld 013 K/MM3 8 ed Auto 15:10 RBC # 09-20- 4.61 4.6-6.2 complet Bld 013 M/mm3 ed Auto 15:10 Hgb 14.3 14.1-18 complet Bld-mCn 013 g/dL .0 ed c 15:10 Hct Fr 44.0 % 42.0-52 complet Bld 013 .0 ed 15:10 MCV RBC 95.6 fl 82.2-97 complet 013 .8 ed 15:10 MCH RBC 31.1 pg 27-31.2 complet Qn 013 ed Auto 15:10 MEAN 32.5 31.8-35 complet CORPUSC 013 g/dl .4 ed ULAR 15:10 HGB CONC RDW RBC 14.0 % 11.5-17 complet Auto 013 .5 ed 15:10 Platele 179 142-424 complet t Bld 013 K/mm3 ed Ql 15:10 Manual MEAN 8.9 fl 7.4-10. complet PLATELE 013 4 ed T 15:10 VOLUME Granulo 74.3 % 37.0-80 complet cytes 013 .0 ed Fr Bld 15:10 Auto LYMPH % 2 19.3 % 10-50 complet 013 ed 15:10 Monocyt 5.3 % 1.7-9.3 complet es Fr 013 ed Bld 15:10 Auto Eosinop 09-20-2 0.7 % 0.1-12. complet hil Fr 013 0 ed Bld 15:10 Auto Basophi 09-20-2 0.4 % 0.1-2.0 complet ls Fr 013 ed Bld 15:10 Auto Granulo 09-20-2 5.0 1.3-8.0 complet cytes # 013 K/mm3 ed Bld 15:10 Auto Lymphoc 09-20-2 1.3 0.7-4.5 complet ytes Fr 013 K/mm3 ed Bld 15:10 Auto Monocyt 09-20-2 0.4 0.1-1.0 complet es # 013 K/mm3 ed Bld 15:10 Auto Eosinop 09-20-2 0.1 0.0-0.4 complet hil # 013 K/mm3 ed Bld 15:10 Auto Basophi 09-20-2 0.0 0-0.2 complet ls # 013 K/MM3 ed Bld 15:10 Auto Procedures Procedure DOS Code Location Performer Comment 3D 37441 [facility] W/INTERP INC INC & POSTPROCE SS SUPERVISI ON RADEX 70304 ANDREINA ANDREINA ORBITS 4 CAREN CAREN COMPLETE MINIMUM 4 VIEWS MRI 51717 ANDREINA ANDREINA SPINAL 4 CAREN CAREN CANAL CERVICAL W/O CONTRAST MATRL BLOOD 82169 [facility] COUNT 4 [facility] COMPLETE INC INC AUTO&[place] [address] [facility] WHITE HEAD/BRAI 4 [facility] N W/O INC INC CONTRAST MATERIAL COMPREHEN 39506 D[facility] WHITE SIVE 4 [facility] [place] [address] [facility] WHITE CERVICAL 4 [facility] SPINE W/O INC INC CONTRAST MATERIAL RADIOLOGI 00276 D[facility] WHITE C EXAM 4 [facility] CHEST 2 INC INC VIEWS FRONTAL&L ATERAL 3D 10777 [facility] WHITE RENDERING 4 [facility] W/INTERP INC INC & POSTPROCE SS SUPERVISI ON RADEX 21969 D[facility] WHITE HUMERUS 4 [facility] MINIMUM 2 INC INC VIEWS 3D 86649 [facility] WHITE RENDERING 4 [facility] INC INC W/INTERP& POSTPROC DIFF WORK STATION Encounters Encounter Start End Date Code Location Performer Type Date [facility] DIANA - 4 4 [facility] HOSP[facility] DIANA - 4 4 [facility] OUTPATIEN [facility] T EMERGENCY 40514 DIANA 4 4 [facility] VISIT MODERATE SEVERITY EMERGENCY 22027 CON[facility] DONNELLY DEPT 4 4 [facility] GRACIELA VISIT HIGH SEVERITY& THREAT FUN Emergency CNYDEE Donnelly MD (ER) 3 01:43 3 02:14 [facility] Emergency CYNDEE BIRD (ER) 3 18:29 3 19:03 [facility] Emergency CYNDEE Hidalgo MD (ER) 3 22:24 3 23:[address] [facility] Inpatient OSMAR Lawson ([place]) 3 22:26 3 00:28 [facility] Emergency CYNDEE White (ER) 3 15:21 3 19:[address] [facility]
--- OUTSIDE RECORDS SUMMARY | 2017-05-15 14:48 | External Medical Summary Rpt | CCD ---
Author Author , YASIR COOLEY Address Unknown Phone [email or web address] Care Team Providers Care Modeling Agency Manager Name Role Phone Samina NGUYEN, Unavailable Unavailable Samina NGUYEN ANDREINA CAREN, Unavailable Unavailable ANDREINA CAREN ANDREINA CAREN, Unavailable Unavailable ANDREINA CAREN CONY GRACIELA, CONY Unavailable Unavailable GRACIELA CONY GRACIELA, CONY Unavailable Unavailable [facility] Un[facility] Purpose Continuity of Care Document - 09-20-2012 [...] 10-28-2013 [facility]IS[facility] UNSPECIFIED INC 43912 DIVERTICULI 10-28-2013 [facility] TIS OF [facility] COLON INC 86944 OTHER 10-28-2013 [facility] CONVULSIONS [facility] INC 7820 DISTURBANCE 10-28-2013 CONY GRACIELA OF SKIN SENSATION 305.50 305.50 09-20-2012 [place] OPIOID [facility] C 780.39 780.39 09-20-2012 [place] OTHER [facility] CONVULSIONS Hospital 786.50 786.50 09-20-2012 [place] CHEST PAIN [facility] 244.9 Hypothyroid [facility] 401.1 Benign [facility] n [id number] Active [facility] [id number] Chronic [facility] Allergies, Adverse Reactions, Alerts Type Drug Allergy [...] SQUARE METERS Comment: If this patient is -Faroese, then multiply the Comment: result by 1.210. [...] blood 09:55 platele t mean volume tod [place] % = 11.4 1.7-9.3 complet 017 % [...] 02:27 c MDRO Wnd (01-21-2017 16:12) Bacteri [id number] complet a XXX 017 06 No ed Anaerob 16:12 growth e+Aerob (qualif e Cult ier value) SCT NG1 NO GROWTH DAY 1. L CC XXX NOTAP complet VC-aCnc 017 NOT ed 16:12 APPLICA BLE L NT-proBNP SerPl-mCnc (01-21-2017 12:30) NT-proB 143 0-899 complet [place] 017 pg/mL ed SerPl-m 12:30 Cnc T4 [...] Bacteria XXX Anaerobe+Aerobe Cult (01-21-2017 11:16) Bacteri [id number] complet a XXX 017 06 No ed [...] complet 013 ed Bld-mCn 22:05 c Salicylates SerPl-mCwy (01-15-2013 22:05) Salicyl 01-15-2 3.5 2.8-20. complet [...] Procedure DOS Code Location Performer Comment 3D 20912 [facility] RENDERING 4 [facility] W/INTERP INC INC & POSTPROCE SS SUPERVISI ON RADEX 77225 ANDREINA ANDREINA ORBITS 4 CAREN CAREN COMPLETE MINIMUM 4 VIEWS MRI 41001 ANDREINA ANDREINA SPINAL 4 CAREN CAREN CANAL CERVICAL W/O CONTRAST MATRL BLOOD 11437 [facility] WHITE COUNT 4 [facility] COMPLETE INC INC AUTO&[place] [address] DIA[facility] WHITE HEAD/BRAI 4 [facility] N W/O INC INC CONTRAST MATERIAL COMPREHEN 63241 D[facility] WHITE SIVE 4 [facility] [place] [address] D[facility] WHITE CERVICAL 4 [facility] SPINE W/O INC INC CONTRAST MATERIAL RADIOLOGI 10863 DIANA WHITE C EXAM 4 [facility] CHEST 2 INC INC VIEWS FRONTAL&L ATERAL 3D 18243 DIANA WHITE RENDERING 4 [facility] W/INTERP INC INC & POSTPROCE SS SUPERVISI ON RADEX 53282 DIANA WHITE HUMERUS 4 [facility] MINIMUM 2 INC INC VIEWS 3D 85760 D[facility] WHITE RENDERING 4 [facility] INC INC W/INTERP& POSTPROC DIFF WORK STATION Encounters Encounter Start End Date Code Location Performer Type Date [facility] DIANA - 4 4 [facility] OUTPATIEN INC HOSPITAL DIANA - 4 4 [facility]PATI[facility] T EMERGENCY 59247 DIANA 4 4 [facility] VISIT MODERATE SEVERITY EMERGENCY 73064 CONY DONNELLY DEPT 4 4 [facility] GRACIELA VISIT HIGH SEVERITY& THREAT FUN Emergency CYNDEE Donnelly MD (ER) 3 01:43 3 02:14 [facility] Emergency CYNDEE BIRD (ER) 3 18:29 3 19:03 [facility] Emergency CYNDEE Hidalgo MD (ER) 3 22:24 3 23:22 [facility] Inpatient OSMAR Lawson ([place]) 3 22:26 3 00:28 [facility] Emergency CYNDEE White (ER) 3 15:21 3 19:03 [facility]
--- OUTSIDE RECORDS SUMMARY | 2017-05-15 14:49 | External Medical Summary Rpt | CCD ---
Author Author , YASIR FALCONPADMA Address Unknown Phone [email or web address] Care Team Providers Care Slot Operations Director Name Role Phone ANDREINA CAREN, Unavailable Unavailable [...] 10-28-2013 [facility]US[facility]IS[facility] UNSPECIFIED INC 78232 DIVERTICULI 10-28-2013 [facility] TIS OF [facility] COLON INC 08564 OTHER 10-28-2013 [facility] CONVULSIONS [facility] INC 7820 DISTURBANCE 10-28-2013 CONY GRACIELA OF SKIN SENSATION Procedures Procedure DOS Code Location Performer Comment RADEX 55485 ANDREINA ANDREINA ORBITS 4 CAREN CAREN COMPLETE MINIMUM 4 VIEWS 3D 62397 [facility] ORTIZ RENDERING 4 [facility] W/INTERP INC INC & POSTPROCE SS SUPERVISI ON MRI 64285 ANDREINA ANDREINA SPINAL 4 CAREN CAREN CANAL CERVICAL W/O CONTRAST MATRL RADEX 41133 D[facility] ORTIZ HUMERUS 4 [facility] MINIMUM 2 INC INC VIEWS 3D 88368 [facility] ORTIZ RENDERING 4 [facility] W/INTERP INC INC & [place] [address] DIANA ORTIZ HEAD/BRAI 4 [facility] N W/O INC INC CONTRAST MATERIAL 3D 31676 D[facility] ORTIZ RENDERING 4 [facility] INC INC W/INTERP& [place] [address] DIANA ORTIZ CERVICAL 4 [facility] SPINE W/O INC INC CONTRAST MATERIAL COMPREHEN 80093 [facility] ORTIZ SIVE 4 [facility] METABOLIC INC INC PANEL BLOOD 83102 D[facility] ORTIZ COUNT 4 [facility] COMPLETE INC INC AUTO&AUTO DIFRNTL WBC RADIOLOGI 01767 DIANA ORTIZ C EXAM 4 [facility] H[facility] CHEST 2 INC INC VIEWS FRONTAL&L ATERAL Encounters Encounter Start End Date Code Location Performer Type Date [facility] DIANA - 4 4 [facility]EN INC T HOSPITAL DIANA - 4 4 [facility] OUTPATIEN INC T EMERGENCY 83606 CONY DONNELLY DEPT 4 4 [facility] VISIT HIGH SEVERITY& THREAT FUN EMERGENCY 04641 DIANA 4 4 [facility] T VISIT MODERATE SEVERITY
--- OUTSIDE RECORDS SUMMARY | 2017-05-15 14:49 | External Medical Summary Rpt | CCD ---
Demographics Preferred Language Upper Sorbian Marital Status Unknown Catholic Affiliation Unknown Race Unknown Ethnic Group Unknown Author Author , YASIR COOLEY Address Unknown Phone Immunization Unable to retrieve immunization data due to connection failure with Immunization Registry. Please try again later.
--- OUTSIDE RECORDS SUMMARY | 2017-05-15 14:49 | External Medical Summary Rpt | CCD ---
Demographics Preferred Language Maori Marital Status Unknown Cheondoism Affiliation Unknown Race Unknown Ethnic Group Unknown Author Author , YASIR COOLEY Address Unknown Phone Immunization Unable to retrieve immunization data due to connection failure with Immunization Registry. Please try again later.
--- OUTSIDE RECORDS SUMMARY | 2017-05-15 14:49 | External Medical Summary Rpt | CCD ---
Author Author , YASIR FALCONPADMA Address Unknown Phone [email or web address] Care Team Providers Care Sales Applications Engineer Name Role Phone ANDREINA CAREN, Unavailable Unavailable [...] 10-28-2013 [facility] SINUSITIS, [facility] UNSPECIFIED INC 00578 DIVERTICULI 10-28-2013 [facility] TIS OF [facility] COLON INC 24003 OTHER 10-28-2013 [facility] CONVULSIONS [facility] INC 7820 DISTURBANCE 10-28-2013 CON[facility] GRACIELA OF SKIN SENSATION Procedures Procedure DOS Code Location Performer Comment RADEX 38298 ANDREINA ANDREINA ORBITS 4 CAREN CAREN COMPLETE MINIMUM 4 VIEWS 3D 60143 [facility] RENDERING 4 [facility] W/INTERP INC INC & POSTPROCE SS SUPERVISI [place] MRI 46554 ANDREINA ANDREINA SPINAL 4 CAREN CAREN CANAL CERVICAL W/O CONTRAST MATRL RADEX 16639 [facility]TIZ HUMERUS 4 [facility] MINIMUM 2 INC INC VIEWS 3D 89505 [facility] ORTIZ RENDERING 4 [facility] W/INTERP INC INC & [place] [address] D[facility] ORTIZ HEAD/BRAI 4 [facility] N W/O INC INC CONTRAST MATERIAL 3D 24714 D[facility] ORTIZ RENDERING 4 [facility] INC INC W/INTERP& [place] [address] [facility]TIZ CERVICAL 4 [facility] SPINE W/O INC INC CONTRAST MATERIAL COMPREHEN 59897 [facility]Z SIVE 4 [facility] METABOLIC INC INC PANEL BLOOD 92156 [facility] COUNT 4 [facility] COMPLETE INC INC AUTO&AUTO DIFRNTL WBC RADIOLOGI 50795 D[facility] ORTIZ C EXAM 4 [facility] CHEST 2 INC INC VIEWS FRONTAL&L ATERAL Encounters Encounter Start End Date Code Location Performer Type Date [facility] D[facility] - 4 4 [facility] D[facility] - 4 4 [facility] T EMERGENCY 85852 [facility] DONNELLY DEPT 4 4 [facility]ACI[facility] VISIT HIGH SEVERITY& THREAT FUN EMERGENCY 89514 DIANA 4 4 [facility] MODERATE SEVERITY
--- OUTSIDE RECORDS SUMMARY | 2017-05-15 14:50 | External Medical Summary Rpt ---
Author Author [employer], [employer] Organization [employer] Address Unknown Phone Unavailable Results CBC W Auto Differential panel in Blood Observa Value Referen Units Interpr Notes Date tion ce etation Range Basophils 0 - 0.2 K/MM3 Normal No May 15 informati 2016 9:55 [#/volume on in AM ] in source Blood by data Automated count Basophils 0.1 - 2.0 % Normal No May 15 informati 2017 9:55 leukocyte on in AM s in source Blood by data Automated count Eosinophi 0.0 - 0.4 K/mm3 Normal No May 15 ls informati 2016 9:55 [#/volume on in AM ] in source Blood by data Automated count Eosinophi 0.1 - % Normal No May 15 ls/100 12.0 informati 2017 9:55 leukocyte on in AM s in source Blood by data Automated count Granulocy 1.3 - 8.0 K/mm3 Normal No May 15 rigo informati 2017 9:55 [#/volume on in AM ] in source Blood by data Automated count Granulocy 37.0 - % Normal No May 15 rigo/100 80.0 informati 2017 9:55 leukocyte on in AM s in source Blood by data Automated count Hematocri 42.0 - % Low No May 15 t [Volume 52.0 informati 2016 9:55 on in AM Fraction] source of Blood data Hemoglobi 14.1 - g/dL Low No May 15 n 18.0 informati 2017 9:55 [Mass/vol on in AM ume] in source Blood data Lymphocyt 0.7 - 4.5 K/mm3 Normal No May 15 es informati 2016 9:55 [#/volume on in AM ] in source Unspecifi data ed specimen by Automated count Lymphocyt 10 - 50 % Normal No May 15 es informati 2016 9:55 [#/volume on in AM ] in source Unspecifi data ed specimen by Automated count Erythrocy 27 - 31.2 pg Normal No May 15 te mean informati 2016 9:55 corpuscul on in AM ar source hemoglobi data n [Entitic mass] Erythrocy 31.8 - g/dl Normal No May 15 te mean 35.4 informati 2017 9:55 corpuscul on in AM ar source hemoglobi data n concentra tion [Mass/vol ume] by Automated count Erythrocy 82.2 - fl Normal No Apr 23 te mean 97.8 informati 2016 9:55 corpuscul on in AM ar volume source [Entitic data volume] by Automated count Monocytes 0.1 - 1.0 K/mm3 Normal No May 15 informati 2016 9:55 [#/volume on in AM ] in source Blood by data Automated count Monocytes 1.7 - 9.3 % High No May 15 /100 informati 2017 9:55 leukocyte on in AM s in source Blood by data Automated count Platelet 7.4 - fl Normal No May 15 mean 10.4 informati 2016 9:55 volume on in AM [Entitic source volume] data in Blood by Automated count Platelets 142 - 424 K/mm3 Normal No May 15 informati 2016 9:55 [#/volume on in AM ] in source Blood data Erythrocy 4.6 - 6.2 M/mm3 Low No Apr 23 rigo informati 2016 9:55 [#/volume on in AM ] in source Amniotic data fluid Erythrocy 11.5 - % Normal No May 15 te 17.5 informati 2016 9:55 distribut on in AM ion width source [Entitic data volume] by Automated count Leukocyte 4.8 - K/MM3 Low No Apr 23 s 10.8 informati 2016 9:55 [#/volume on in AM ] in source Blood data Gas panel in Arterial blood Observa Value [...] Normal No Oct 4 dioxide 45.0 informati 2016 [Partial on in 12:15 PM pressure] source [...] needed. Ampheta NEGATIV <1000 ng/mL No No Oct 4 mine E informa informa 2016 [Presen tion in tion in 12:02 ce] in source source PM Urine data data by Screen method Barbitura <200 ng/mL No No Oct 4 rigo informati informati 2016 [Mass/vol on in on in 12:02 PM ume] in source source Urine by data data Screen method Benzodiaz 200 ng/mL ng/mL High This is Apr 4 epines an 2017 [Mass/vol UNCONFIRM 12:02 PM ume] in ED Serum or result. Plasma by This Screen result is method for medicalpu rposes and/or treatment only. Cocaine <300 ng/g No No Oct 4 [Mass/vol informati informati 2016 ume] in on in on in 12:02 PM Unspecifi source source ed data data specimen Methadone <300 ng/mL No No Oct 4 informati informati 2017 [Mass/vol on in on in 12:02 PM ume] in source source Unspecifi data data ed specimen Opiates <300 ng/mL High This is Apr 26 [Mass/vol an 2016 ume] in UNCONFIRM 12:02 PM Unspecifi ED ed result. specimen This result is for medicalpu rposes and/or treatment only. Phencycli <25 ng/mL No No Apr 4 dine informati informati 2016 [Mass/vol on in [...] Apr 26 nce of informa informa informa 2016 Urine tion in tion in tion in 12:02 source source source PM data data data Bacteri 3+ O No No No Apr 26 a informa informa informa 2016 [Presen tion in tion in tion in 12:02 ce] in source source source PM Urine data data data sedimen t by Light microsc opy Bilirub NEGATIV NEG No No No Apr [...] No Apr 26 of informa informa informa 2016 Urine tion in tion in tion in 12:02 source source source PM data data data Glucose NEG No No No Apr 26 [Mass/vol informati informati informati 2016 ume] in on in on in on in 12:02 PM Urine by source source source Test data data data strip Ketones NEGATIV NEG mg/dL No No Apr 26 E informa informa 2016 [Presen tion in tion in 12:02 ce] in source source PM Urine data data by Automat ed test strip Mucus NEGATIV NEG No No No Apr 4 [Presen E informa informa informa 2016 ce] in tion in tion in tion in 12:02 Urine source source source PM sedimen data data data t by Light microsc opy Nitrite NEGATIV NEG No No No Apr 26 E informa informa informa 2016 [Presen tion in tion in tion in 12:02 ce] in source source source PM Urine data data data by Test strip pH of 5.0 - 8.5 No Normal No Apr 4 Urine informati informati 2017 on in on in 12:02 PM source source data data Protein NEG mg/dL No No Apr 4 [Mass/vol informati informati 2017 ume] in on in on in 12:02 PM Urine by source source Automated data data test strip Erythro NONE 0 rbc/hpf No No Apr 4 cytes informa informa 2016 [Presen tion in tion in 12:02 ce] in source source PM Urine data data sedimen t by Light microsc opy Specific 1.005 - No Normal No Apr 4 gravity 1.030 informati informati 2017 of [...] Appeara Clear CLEAR No No No Apr 4 nce of informa informa informa 2017 Urine tion in tion in tion in 12:02 source source source PM data data data Bilirub NEGATIV NEG No No No Oct 4 in E informa informa informa 2016 [Presen tion in tion in tion in 12:02 ce] in source source source PM Urine data data data by Test strip Erythro NEGATIV NEG No No No Apr 4 cytes E informa informa informa 2016 [Presen tion in tion in tion in 12:02 ce] in source source source PM Urine data data data Color YELLOW YELLOW No No No Apr 4 of informa informa informa 2017 Urine tion in tion in tion in 12:02 source source source PM data data data Glucose NEG No No No Apr 4 [Mass/vol informati informati informati 2016 ume] in on in on in on [...] Apr 26 [Presen E informa informa informa 2016 ce] in tion in tion in tion in 12:02 Urine source source source PM sedimen data data data t by Light microsc opy Nitrite NEGATIV NEG No No No Apr 26 E informa informa informa 2016 [Presen tion [...] strip Specific 1.005 - No Normal No Oct 4 gravity 1.030 informati informati 2017 of Urine on in on in 12:02 PM source source data data Urobili 0.2 NEG E.U./dL No No Oct 4 nogen informa informa 2016 [Presen tion in tion in 12:02 ce] in source source PM Urine data data by Test strip Ammonia [Mass/volume] in Unspecified specimen Observa Value Referen Units Interpr Notes Date tion ce etation Range Ammonia 19 - 54 umoL/L Low No Oct 4 [Mass/vol informati 2016 ume] in on in 11:55 AM Unspecifi source ed data specimen Glucose [Mass/volume] in Capillary blood by Glucometer Observa Value Referen Units Interpr Notes Date tion ce etation Range Glucose 70 - 110 mg/dl Normal No Apr 26 [Mass/vol informati 2016 ume] in on in 11:27 AM Capillary source blood by data Glucomete r Acetaminophen [Mass/volume] in Unspecified specimen Observa Value Referen Units Interpr Notes Date tion ce etation Range Acetamino 10 - 30 ug/mL Low No Apr 26 phen informati 2016 9:00 [Mass/vol on in AM ume] in source Unspecifi data ed specimen Ethanol [Mass/volume] in Serum or Plasma Observa Value Referen Units Interpr Notes Date tion ce etation Range Ethanol 0 - 99 mg/dL Normal ANY Apr 26 [Mass/vol ALCOHOL > 2016 9:00 ume] in OR = 80 AM Serum or MG/DL IS Plasma CONSIDERE D LEGALLYIN TOXICATED UNDER [place] [employer] LAW. Salicylates [Mass/volume] in Serum or Plasma [...] Normal No Apr 26 te mean 35.4 informati 2016 9:00 corpuscul on in AM [...] - 9.3 % Normal No Apr 26 informati 2016 9:00 leukocyte on in AM s in source Blood by data Automated count Platelets 142 - 424 K/mm3 Normal No Apr 26 informati 2016 9:00 [#/volume on in AM ] in source Blood data Erythrocy 4.6 - 6.2 M/mm3 Low No Oct 4 rigo informati 2017 9:00 [#/volume on in AM ] in source Amniotic data fluid Erythrocy 11.5 - % Normal No Apr 26 te 17.5 informati 2017 9:00 distribut on in AM ion width source [Entitic data volume] by Automated count Leukocyte 4.8 - K/MM3 Normal No Apr 4 s 10.8 informati 2017 9:00 [#/volume on in AM ] in source Blood data Lactate [Moles/volume] in Blood Observa Value Referen Units Interpr Notes Date tion ce etation Range Lactate 0.4 - 2.0 [...] mg/dL Normal No Jan 21 .total informati 2016 3:36 [Mass/vol on in AM ume] in source Serum or data Plasma Urea 7 - 18 mg/dL High No Jan 21 nitrogen informati 2016 3:36 [Mass/vol on in AM ume] in source Serum or data Plasma Calcium 8.5 - mg/dL Normal No Jan 21 [Mass/vol 10.1 informati 2017 3:36 ume] in on in AM Serum or source Plasma data Chloride 98 - 107 mmoL/L Normal No Jan 21 [Moles/vo informati 2017 3:36 lume] in on in AM Serum or source Plasma data Carbon 21.0 - mmoL/L Normal No Jan 21 dioxide, 32.0 informati 2017 3:36 total on in AM [Moles/vo source [...] 5.1 mmoL/L Normal No Jan 21 informati 2016 3:36 [Moles/vo on in AM lume] in [...] - 2.0 % Normal No Jan 21 / informati 2016 3:36 leukocyte on in AM [...] Normal No Jan 21 te mean 35.4 informati 2016 3:36 corpuscul on in AM [...] - 9.3 % Normal No Jan 21 informati 2016 [...] 6.2 M/mm3 Low No Jan 21 rigo inform2016 3:36 [#/volume on in AM ] in [...] No No Dec 28 rigo informati informati 2016 4:00 [Mass/vol on in [...] High This is Dec 28 [Mass/vol an 2017 4:00 ume] in UNCONFIRM PM Unspecifi ED [...] Plasma Creatinin 0.70 - mg/dL Normal No Dec 28 e 1.30 informati 2017 4:00 [Mass/vol on [...] 3.5 - 5.1 mmoL/L High No Dec 7 informati 2016 4:00 [Moles/vo on in PM lume] in source Serum or data Plasma Sodium 136 - 145 mmoL/L Normal No Dec 7 [Moles/vo informati 2016 4:00 lume] in on in PM Serum or source Plasma data Urinalysis dipstick W Reflex Microscopic panel in Urine Observa Value Referen Units Interpr Notes Date tion ce etation Range Appeara CLEAR CLEAR No No No Dec 4 nce of informa informa informa 2017 Urine tion in tion in tion in 1:10 PM source source source data data data Bilirub NEGATIV NEG No No No Kahlil 4 in E informa informa informa 2016 [...] No No Kahlil 4 E informa informa 2016 [Presen tion in tion in 1:10 PM ce] in source source Urine data data by Automat ed test strip Mucus NEGATIV NEG No No No Kahlil 4 [Presen E informa informa informa 2016 ce] in tion in tion in tion in 1:10 PM Urine source source source sedimen data data data t by Light microsc opy Nitrite NEGATIV NEG No No No Kahlil 4 E informa informa informa 2016 [Presen [...] Appeara CLEAR CLEAR No No No Dec 4 nce of informa informa informa 2017 Urine tion in tion in tion in 1:10 PM source source source data data data Bacteri TRACE O No No No Dec 4 a informa informa informa 2016 [Presen tion in tion in tion in 1:10 PM ce] in source source source Urine data data data sedimen t by Light microsc opy Bilirub NEGATIV NEG No No No Dec [...] No Dec 25 [Mass/vol informati informati informati 2017 1:10 ume] in on in on in on in PM Urine by source source source Test data data data strip Ketones NEGATIV NEG mg/dL No No Dec 4 E informa informa 2016 [Presen tion [...] opy Mucus OCC NONE No No No Dec 4 [Presen informa informa informa 2017 ce] in tion in tion in tion in 1:10 PM Urine source source source sedimen data data data t by Light microsc opy Nitrite NEGATIV NEG No No No Dec 4 E informa informa informa 2017 [Presen tion in tion in tion in 1:10 PM ce] in source source source Urine data data data by Test strip pH of 5.0 - 8.5 No Normal No Kahlil 4 Urine informati informati 2017 1:10 on in on in PM source source data data Protein NEG mg/dL No No Dec 4 [Mass/vol informati informati 2017 1:10 ume] in on in on in PM Urine by source source Automated data data test strip Specific 1.005 - No Normal No Dec 25 gravity 1.030 informati informati 2017 1:10 of Urine on in on in PM source source data data Epithel OCC OCC #/hpf No No Dec 25 ial informa informa 2017 cells.s tion in tion in 1:10 PM quamous source source data data [Presen ce] in Urine sedimen t by Microsc opy high power field Urobili 0.2 NEG E.U./dL No No Dec 25 nogen informa informa 2016 [Presen tion in tion in 1:10 PM ce] in source source Urine data data by Test strip Leukocyte O wbc/hpf No No Dec 4 s informati informati 2017 1:10 [#/volume on in on in PM ] in source source Urine data data Drugs identified in Urine by Screen method Observa Value Referen Units Interpr Notes Date tion ce etation Range Positive urine drug screen samples are stored for 7 days. Contact the Lab if confirmation of positives is needed. Ampheta NEGATIV <1000 ng/mL No No Dec 25 mine E informa informa 2016 [Presen tion in tion in 1:10 PM ce] in source source Urine data data by Screen method Barbitura <200 ng/mL No No Dec 25 rigo informati informati 2017 1:10 [Mass/vol on in on in PM ume] in source source Urine by data data Screen method Benzodiaz 200 ng/mL ng/mL High This is Dec 25 epines an 2017 1:10 [Mass/vol UNCONFIRM PM ume] in ED Serum or result. Plasma by This Screen result is method for medicalpu rposes and/or treatment only. Cocaine <300 ng/g No No Dec 4 [Mass/vol informati informati 2017 1:10 ume] in on in on in PM Unspecifi source source ed data data specimen Methadone <300 ng/mL No No Dec 25 informati informati 2017 1:10 [Mass/vol on in [...] mg/dL High No Kahlil 4 nitrogen informati 2016 [Mass/vol on in 12:00 PM ume] in source Serum or data Plasma Calcium 8.5 - mg/dL Low No Kahlil 4 [Mass/vol 10.1 informati 2017 ume] in on in 12:00 PM Serum [...] mg/dL High No Kahlil 4 nitrogen informati 2016 5:55 [Mass/vol on in AM ume] in source Serum or data Plasma Calcium 8.5 - mg/dL Low No Kahlil 4 [Mass/vol 10.1 informati 2017 5:55 ume] in on in AM Serum or source Plasma data Chloride 98 - 107 mmoL/L Normal No Kahlil 4 [Moles/vo informati 2016 5:55 lume] in on in AM Serum or source Plasma data Carbon 21.0 - mmoL/L Normal No Kahlil 4 dioxide, 32.0 informati 2016 5:55 total on in AM [Moles/vo source lume] in data Serum or Plasma Creatinin 0.70 - mg/dL High No Kahlil 4 e 1.30 informati 2017 5:55 [Mass/vol on in AM ume] in source Serum or data Plasma Creatinin 50 - 200 ML/MIN Low No Kahlil 4 e renal informati 2017 5:55 clearance [...] mg/dL Normal No Kahlil 4 [Mass/vol informati 2017 5:55 ume] in on in AM Serum or source Plasma data Potassium 3.5 - 5.1 mmoL/L Normal No Kahlil 4 informati 2017 5:55 [Moles/vo on in AM lume] in source Serum or data Plasma Sodium 136 - 145 mmoL/L Normal No Kahlil 4 [Moles/vo informati 2017 5:55 lume] in on in AM Serum or source Plasma data CBC W Auto Differential panel in Blood Observa Value Referen Units Interpr Notes Date tion ce etation Range Basophils 0 - 0.2 K/MM3 Normal No Kahlil 3 informati 2016 8:00 [...] Granulocy 1.3 - 8.0 K/mm3 Normal No Dec 3 rigo informati 2016 8:00 [#/volume on [...] Low No Dec 3 n 18.0 informati 2016 8:00 [Mass/vol on in PM ume] in source Blood data Lymphocyt 0.7 - 4.5 K/mm3 Normal No Dec 3 es informati 2016 8:00 [#/volume on in PM ] in source Unspecifi data ed specimen by Automated count Lymphocyt 10 - 50 % Normal No Dec 3 es inform2016 8:00 [#/volume on in PM ] in source Unspecifi data ed specimen by Automated count Erythrocy 27 - 31.2 pg Normal No Dec 3 te mean informati 2016 8:00 corpuscul on in PM ar source hemoglobi data n [Entitic mass] Erythrocy 31.8 - g/dl Normal No Dec 3 te mean 35.4 informati 2016 8:00 corpuscul on in PM ar source hemoglobi data n concentra tion [Mass/vol ume] by Automated count Erythrocy 82.2 - fl Normal No Dec 3 te mean 97.8 informati 2016 8:00 corpuscul on in PM ar volume source [Entitic data volume] by Automated count Monocytes 0.1 - 1.0 K/mm3 Normal No Dec 3 inform2016 8:00 [#/volume on in PM ] in source Blood by data Automated count Monocytes 1.7 - 9.3 % Normal No Kahlil 3 /100 informati 2016 8:00 leukocyte on in PM s in source Blood by data Automated count Platelet 7.4 - fl Low No Kahlil 3 mean 10.4 informati 2016 8:00 volume on in PM [Entitic source volume] data in Blood by Automated count Platelets 142 - 424 K/mm3 No No Dec 3 informati informati 2016 8:00 [#/volume on in on in PM ] in source source Blood data data Erythrocy 4.6 - 6.2 M/mm3 Low No Dec 3 rigo informati 2016 8:00 [#/volume on in PM ] in source Amniotic data fluid Erythrocy 11.5 - % Normal No Dec 3 te 17.5 informati 2016 8:00 distribut on in PM ion width source [Entitic data volume] by Automated count Leukocyte 4.8 - K/MM3 Normal No Kahlil 3 s 10.8 informati 2016 8:00 [#/volume on in PM ] in source Blood data
--- OUTSIDE RECORDS SUMMARY | 2017-05-15 14:50 | External Medical Summary Rpt ---
[...] IS Plasma CONSIDERE D LEGALLYIN TOXICATED UNDER [place] [employer] LAW. Salicylates [Mass/volume] in Serum or Plasma [...]
[2017-05-15] MEDS ORDERED: LISINOPRIL 10MG10 MG PO (14:59)
[2017-05-15 15:09] VITALS: BP 105/46; BP 79/47
[2017-05-15 19:18] VITALS: BP 94/61
[2017-05-15 19:30] VITALS: BP 94/61
--- NOTE | 2017-05-15 20:28 | RADIOLOGY REPORT PS360 ---
CHEST(2 VIEWS-NOT PORTABLE) HISTORY: CP flank pain. Chest pain. Patient Age: 62 years: Male Ordering Physician: Cheryl Leger MD TECHNIQUE: PA and lateral chest. COMPARISON :Previous chest film 04/26/[address] abdomen from today & 01/21/2017 & 12/24/2016. These studies included lung bases FINDINGS Today at the left base are is slight increased markings reflecting mainly atelectasis along with minimal chronic changes.. No good evidence active infiltrate abdominal CT images lung bases today On today's lateral film suboptimal inspiration limits the study & exaggerates,/ accentuates markings. Right lung base. Again mild fibrotic changes posteriorly on CT are reflective with stable mild chronic changes I believe here. Numerous vascular structure shadows at infrahilar regions bilateral. The upper lung calabrese are clear. Heart connor and mediastinal structures stable & unremarkable. No pleural effusion IMPRESSION: Mild chronic changes at lung bases along with mild bibasilar atelectasis left greater the right . Doubt active infiltrate based on prior studies as well as today's & prior CT abdomen images of the lung bases
[2017-05-16 04:00] VITALS: BP 80/50
[2017-05-16 05:24] VITALS: BP 90/60
[2017-05-16 06:25] LABS: LYMPH # 0.7 K/mm3 (0.7-4.5); LYMPH % 39.9 % (10-50)
[2017-05-16 06:40] LABS: HEMOGLOBIN 10.4 g/dL (14.1-18.0)
--- NOTE | 2017-05-16 07:18 | PHARMACY CLINIC NOTE ---
Patient Demographics Patient Demographics Admission date: 05/15/17 Date: 05/16/17 Time: 0718 Allergies Coded Allergies: Penicillins (05/15/17) HEIGHT- FT: 5 IN: 10.00 K.915 VTE General Information Labs: Laboratory Tests 05/16 05/15 [id number] Hematology Hgb (14.1 - 18.0 g/dL) 10.4 L 12.3 L Hct (42.0 - 52.0 %) 31.3 L 37.7 L Plt Count (142 - 424 K/mm3) 124 L 169 Disclaimer The following section includes nursing documentation that has been pulled in for pharmacy review. Patient's VTE score: 1 Patient's VTE Risk: VERY LOW RISK Clinical trial participant? No VTE prophylaxis NQF [id number] VTE prophylaxis ordered? Yes Type of prophylaxis/treatment: MARCELLUS at 0718
[2017-05-16] MEDS ORDERED: ALPRAZOLAM2 MG PO (07:19)
[2017-05-16 08:30] VITALS: BP 107/62
[2017-05-16 09:20] VITALS: BP 107/62
[2017-05-16 09:27] LABS: NEUTROPHILS 38 % (42-76)
--- NOTE | 2017-05-16 12:55 | Discharge Summary Standard ---
Demographics: Admit date: 05/16/17 Chief complaint: DEHYDRATION PRIMARY DIAGNOSIS: ORTHOSTATIC HYPOTENSION Allergies: Coded Allergies: Penicillins (05/15/17) History of present illness: History of present illness: 62 yr old male presented to ed with c/o L flank pain, no urinary sx,Pt reports not feeling well, not sleeping well and spent some time this weekend with a family member who is dying and did not eat or sleep. hx of CRI. He has chronic gross hematuria. Has hx of brain tumor, and continues to have tumor "behind right eye"; no new cephalgia; no new neurological sx; has a hx of kidney, lung tumors as well and is followed by Dr. Harris. No fever or vomiting. No abdominal pain. No blood in stool or emesis. Past medical history: Family HX Diabetes No CAD No Hypertension Yes Hyperlipidemia Yes Cancer Yes TB No Immunization HX Ped.Immunizations UTD Yes DT/Tetanus 1-4 Years Ago Flu 2014-16FSN Pneumonia Received In Past TB Test in last year Yes Result Negative General CAD? No Angina: No [place]: No Hypertension? Yes Hyperlipidemia? No CHF? No DVT? No PE? No COPD? No Asthma? No Anemia? No GERD? No Gastric ulcers? No GI Bleed? No Hernia? No Thyroid Problems? Yes Hypothyroidism? Yes CVA? No Seizures? Yes Diabetes? No Renal Insuffiency? Yes UTI? Yes Stones? Yes BPH? No GB Disease: No Nephritic Syndrome? No Asplenia? No Hepatitis? No Sickle Cell Disease? No Arthritis? Yes Migraines? No Cataracts? No Glaucoma? No MRSA? No HIV? No TB? No Anxiety? Yes Depression? No Cancer? 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 No Review of systems: Constitutional see HPI, malaise. Respiratory No: no symptoms reported. Cardiovascular No no symptoms reported Gastrointestinal/Abdominal see HPI, poor appetite, poor fluid intake Genitourinary No: no symptoms reported. Musculoskeletal see HPI. Neurological No: see HPI. Exam: Lab data for last 24 hours: Laboratory Tests 05/16/17 0603: Sodium 144, Potassium 4.6, Chloride 111 H, Carbon Dioxide 26, BUN 27 H, Creatinine 1.2, Estimated Creat Clear 88, Estimated GFR (MDRD) 62, Glucose 101, Calcium 8.1 L, Total Bilirubin 0.4, AST 15, ALT 12, Alkaline Phosphatase 47, Total Protein 5.5 L, Albumin 2.8 L, Globulin 2.7, Albumin/Globulin Ratio 1.0 L, WBC 1.7 *L, RBC 3.28 L, Hgb 10.4 L, Hct 31.3 L, MCV 95.4, RDW 13.3, Plt Count 124 L, MPV 9.5, Gran % 40.4, Gran # 0.7 *L, Total Counted 100, Lymphocytes % 39.9, Monocytes % 12.5 H, Eosinophils % 6.4, Basophils % 0.8, Neutrophils 38 L, Lymphocytes (Manual) 34, Lymphocytes # 0.7, Monocytes (Manual ) 18 H, Monocytes # 0.2, Eosinophils # 0.1, Eosinophils # (Manual) 5 H, Basophils # 0.0, Basophils # (Manual) 5 H, Platelet Estimate SLIGHT DECREASE, PUBS MCHC 33.0, MCH 31.5 H, HIV 1&2 Antibody NEGATIVE 05/15/17 1258: Urine Color YELLOW, Urine Appearance CLEAR, Urine pH 6.0, Ur Specific [place] >= 1.030, Urine Protein TRACE H, Urine Ketones NEGATIVE, Urine Blood NEGATIVE, Urine Nitrate NEGATIVE, Urine Bilirubin NEGATIVE, Urine Urobilinogen 0.2, Ur Leukocyte Esterase NEGATIVE, Urine RBC NONE, Urine WBC OCC, Ur Squamous Epith Cells OCC, Urine Bacteria 3+, Hyaline Casts 3-5, Urine Mucus 1+, Urine Glucose NEGATIVE Microbiology 05/15 1258 URINE CC: Urine Culture - RES Admission vital signs: 1ST Vital Signs Result Date Time Pulse Ox 99 05/15 947 Temp 98.0 05/15 947 Pulse 74 05/15 947 Resp 18 05/15 947 B/P 98/50 05/15 1230 O2 Delivery ROOM AIR 05/15 1509 Exam General appearance: normal appearance, alert, awake, no acute distress Eyes: normal exam ENT: normal exam Neck: normal inspection, no carotid bruit Cardiovascular: normal exam, regular rate & rhythm Respiratory: normal exam, clear to auscultation, good air movement ABD: normal exam, normal bowel sounds, soft Genitourinary: normal voiding & quantity Extremities: full range of motion, moves all, warm Musculoskeletal: normal exam Skin: normal exam, intact, warm Neuro: normal exam, alert, intact, oriented Hospital Course Hospital Course: chest x ray:IMPRESSION: Mild chronic changes at lung bases along with mild bibasilar atelectasis left greater the right . Doubt active infiltrate based on prior studies as well as today's & prior CT abdomen images of the lung bases ct head: IMPRESSION: No acute intracranial findings. Brain appears unchanged versus prior study. 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 No urinary tract calculi nor obstruction. Prominent benign appearing cyst anterior aspect left kidney again noted similar to January . Moderate stool most generous stool is seen at the rectosigmoid and right colon may reflect mild constipation but unimpressive overall. Suspect minimal sludge in gallbladder but no calcified stones. today pt states feels better and reday to be dc home, desamone to see pt tomorrow at 2 and office on monday. Medications Medications: Discharge meds are as noted. Follow up Follow up in office in: 1 DAY with: Griffin Martin MD Comment: dana serrano earlier, gabby to see pt at 2 pm tomorrow, office monday for cbc and cmp at 1255
[2017-05-16 13:30] VITALS: BP 156/90
== END 2017-05-16 13:30 | disposition home or self-care (01) ==
LOC: ER 09:37 → 2ND 14:22 → ER 14:22 → 2ND 14:33
PROVIDERS: Emergency Medicine
DX: R07.9 Chest pain, unspecified (principal); Z72.0 Tobacco use; I10 Essential (primary) hypertension; Z11.4 Encounter for screening for human immunodeficiency virus [HIV]; N39.0 Urinary tract infection, site not specified; D61.818 Other pancytopenia; C80.1 Malignant (primary) neoplasm, unspecified
CPT/HCPCS: G0378; G0432

== ENCOUNTER → 2017-05-18 | Outpatient (CLI) | payer MEDICARE ==
[~2017-05-18] MED LIST changes: +LISINOPRIL 10MG10 MG PO
[2017-05-18 11:37] LABS: LYMPH # 0.7 K/mm3 (0.7-4.5); LYMPH % 21.2 % (10-50)
[2017-05-18 11:44] LABS: HEMOGLOBIN 12.2 g/dL (14.1-18.0)
[2017-05-19 10:39] LABS: HBsAg Screen Negative (Negative); Hep A Ab, IgM Negative (Negative); Hep B Core Ab, IgM Negative (Negative); Hep C Virus Ab <0.1 (0.0-0.9)
== END ==
LOC: LAB 10:40
PROVIDERS: Nurse Practitioner
DX: D61.818 Other pancytopenia (principal); M54.2 Cervicalgia; Z85.828 Personal history of other malignant neoplasm of skin; Z79.899 Other long term (current) drug therapy

== ENCOUNTER → 2017-06-19 | Outpatient (CLI) | payer MEDICARE ==
[2017-06-19 17:37] LABS: AMPHETAMINES/METAMPHETAMINES NEGATIVE ng/mL (<1000)
== END ==
LOC: LAB 15:19
PROVIDERS: Emergency Medicine
DX: Z79.899 Other long term (current) drug therapy (principal)